=== PATIENT | female | born 1950 | race African-American/Black ===

== ENCOUNTER 2019-04-17 10:39 | Emergency (ER) | payer OTHER ==
[2019-04-17 12:20] LABS: Absolute Lymphocytes (CBC) 1.9 K/uL (0.7-4.9); Basophils % 1.1 % (0-1.3); Hematocrit 39.2 % (36.0-45.0); Lymphocytes % 27.6 % (15.3-44.8); MPV 10.1 fL (7.6-11.3); RBC Red Blood Cell Count 4.65 M/uL (3.86-4.86)
[2019-04-17 12:31] LABS: Albumin 3.6 g/dL (3.4-5.0); Bilirubin Direct 0.1 mg/dL (0-0.2); Bilirubin Total 0.3 mg/dL (0.2-1.0); Potassium 3.6 mmol/L (3.5-5.1); Protein, Total 7.1 g/dL (6.4-8.2)
--- NOTE | 2019-04-17 13:33 | RAD REPORT ---
EXAM DESCRIPTION: CT - Head Brain Wo Cont - 04/17/2019 1:24 pm CLINICAL HISTORY: Headache COMPARISON: None. TECHNIQUE: Axial 5 mm thick images of the head were obtained without IV contrast. All CT scans are performed using dose optimization technique as appropriate and may include automated exposure control or mA/KV adjustment according to patient size. FINDINGS: No intracranial hemorrhage, mass, edema or shift of mid-line structures. No acute infarcti on changes seen. Mild to moderate atrophy changes are present. Chronic ischemic changes are seen in t he cerebral white matter the and basal ganglia. Ventricles are borderline to slightly out of proporti on for the amount of volume loss. No transependymal migration of CSF. Correlation is needed with any findings of normal pressure hydrocephalus. Mastoid air cells are clear. No acute paranasal sinus finding. No acute bony findings. IMPRESSION: No hemorrhage, edema, acute infarction or other acute intracranial process. Atrophy and chronic ischemic changes present. Ventricles are borderline to slightly out of proportion for the amount of volume loss. Correlation is needed with any normal pressure hydrocephalus exam findings or history.
--- NOTE | 2019-04-17 13:38 | RAD REPORT ---
EXAM DESCRIPTION: CT - Abdomen Pelvis W Contrast - 04/17/2019 1:24 pm CLINICAL HISTORY: ABD PAIN, left lower quadrant pain, left flank pain COMPARISON: None. TECHNIQUE: Biphasic, helical CT imaging of the abdomen and pelvis was performed following 100 ml non -ionic IV contrast. No oral contrast given. All CT scans are performed using dose optimization technique as appropriate and may include automated exposure control or mA/KV adjustment according to patient size. FINDINGS: No suspicious findings in the lung bases. The liver, spleen, and pancreas show no suspicious findings. Gallbladder and biliary tree are also wi thout suspicious finding. Gallstones can be occult on CT imaging. Symmetric renal function is seen with no hydronephrosis or suspicious renal mass. No pyelonephritis o r acute parenchymal process. Urinary bladder is contracted. Normal sized uterus for age. Ovaries are not well defined. No suspicion for an adnexal process. Patient has pelvic floor laxity. Pelvic floor detail and specific organ prolapse assessment limited due to the spray artifact from the right hip pr osthesis. Bilateral adrenal gland nodularity. Primary renal mass is unlikely. No dilated bowel loops or bowel wall thickening. Left-sided diverticulosis is present without diverti culitis. Trace amount of stranding is present adjacent to a few diverticula. This is not sufficient f or a diverticulitis diagnosis. Re- imaging can be performed if the patient's symptoms are progressive . No free air, free fluid or inflammatory stranding. No mass or bulky lymphadenopathy. Patient has a very small fat only umbilical hernia. No suspicious bony findings. IMPRESSION: Diverticulosis without mass or diverticulitis. Trace amount of stranding is present carlos cent to a few diverticula. This is not sufficient for a diverticulitis diagnosis. Re- imaging can be performed if the patient's symptoms are progressive. No acute finding. Pelvic floor laxity is present. Specific organ prolapse assessment cannot be made due to the substant ial spray artifact from right hip prosthesis.
[2019-04-17 14:12] LABS: Urine Blood NEGATIVE (NEG); Urine Glucose NEGATIVE (NEG); Urine Protein NEGATIVE (NEG)
--- NOTE | 2019-04-17 14:22 | ER ---
Nurse's Notes [facility] Name: Amarilys Roberto Age: 68 yrs Sex: Female : 1950 Arrival Date: 04/17/2019 Time: 10:40 Bed 13 Private MD: Diagnosis: Abdominal and pelvic pain;Low back pain Presentation: 04/17 10:54 Presenting complaint: Patient states: LEFT lower abd pain radiates to flank x 2 days. sr5 Denies urinary/bowel symptoms. Also reports headache. PMH=DM. Transition of care: patient was not received from another setting of care. 10:54 Method Of Arrival: Ambulatory sr5 10:54 Acuity: DUNCAN 3 sr5 11:33 Onset of symptoms was April 16, 2019. Risk Assessment: Do you want to hurt yourself rb1 or someone else? Patient reports no desire to harm self or others. Initial Sepsis Screen: Does the patient meet any 2 criteria? No. Patient's initial sepsis screen is negative. Does the patient have a suspected source of infection? No. Patient's initial sepsis screen is negative. Care prior to arrival: None. Triage Assessment: 10:55 General: Appears in no apparent distress. Behavior is calm, cooperative. Pain: sr5 Complains of pain in left lower quadrant Pain currently is 4 out of 10 on a pain scale. Quality of pain is described as sharp. Neuro: No deficits noted. Cardiovascular: No deficits noted. Respiratory: No deficits noted. GI: Reports lower abdominal pain, pain worse when bending over. 11:33 Musculoskeletal: Range of motion: intact in all extremities. rb1 Historical: - Allergies: 10:55 ACETAMINOPHEN; sr5 10:55 PROPOXYPHENE; sr5 11:33 Percodan; rb1 11:33 tramadol; rb1 - Home Meds: 11:33 atropine 1 % Opht drop 1 drop once daily [Active]; Bepreve 1.5 % ophthalmic drop 1 drop rb1 2 times per day [Active]; fluticasone 50 mcg/actuation nasal spsn 1 spray 2 times per day [Active]; levothyroxine 100 mcg tab 1 tab once daily [Active]; lisinopril 20 mg Oral tab 1 tab once daily [Active]; Lotemax 0.5 % ophthalmic drpg 1 drop 4 times per day [Active]; metformin 1,000 mg Oral tr24 1 tab twice a day [Active]; montelukast 10 mg Oral tab 1 tab once daily [Active]; Symbicort 80-4.5 mcg/actuation inhalation HFAA 2 puffs 2 times per day [Active]; - PMHx: 10:55 Diabetes - NIDDM; Hypertension; Hypothyroidism; sr5 - PSHx: 11:33 eye surgery; hip surgery; corneal tranplant R eye; left eye enucleation; rb1 - Immunization history:: Flu vaccine is up to date. - Social history:: Smoking status: Patient/guardian denies using tobacco, never smoked. - Ebola Screening: : Patient negative for fever greater than or equal to 101.5 degrees Fahrenheit, and additional compatible Ebola Virus Disease symptoms. Screenin:33 Abuse screen: Denies threats or abuse. Nutritional screening: No deficits noted. rb1 Tuberculosis screening: No symptoms or risk factors identified. 12:05 Fall Risk No fall in past 12 months (0 pts). Secondary diagnosis (15 points) legally rb1 blind. IV access (20 points). Ambulatory Aid- None/Bed Rest/Nurse Assist (0 pts). Gait- Normal/Bed Rest/Wheelchair (0 pts) Mental Status- Oriented to own ability (0 pts). Total Abdullahi Fall Scale indicates Low Risk Score (25-44 pts). Fall prevention measures have been instituted. Side Rails Up X 2 Placed close to Nursing Station 1:1 attendant Assigned to Pt. Frequent Obs/Assesments occuring As available Patient and Family Educated on Fall Prevention Program and strategies. Assessment: 11:33 General: Appears in no apparent distress. comfortable, Behavior is calm, cooperative, rb1 Denies fever. Pain: Complains of pain in left lower quadrant Pain radiates to left low back Pain currently is 0 out of 10 on a pain scale. at worst was 6 out of 10 on a pain scale. Pain began 1 day ago. Neuro: Level of Consciousness is awake, alert, obeys commands, Oriented to person, place, time, situation. Cardiovascular: Capillary refill < 3 seconds is brisk in bilateral fingers. Respiratory: Airway is patent Respiratory effort is even, unlabored, Respiratory pattern is regular, symmetrical. GI: No signs and/or symptoms were reported involving the gastrointestinal system. : No signs and/or symptoms were reported regarding the genitourinary system. EENT: Reports legally blind. Derm: Skin is pink, warm \T\ dry. 12:33 Reassessment: Patient appears in no apparent distress at this time. No changes from rb1 previously documented assessment. 13:33 Reassessment: Patient appears in no apparent distress at this time. Patient and/or rb1 family updated on plan of care and expected duration. Pain level reassessed. Patient is alert, oriented x 3, equal unlabored respirations, skin warm/dry/pink. Pt. is sitting on the side of the bed watching TV. 14:30 Reassessment: Patient appears in no apparent distress at this time. Patient and/or rb1 family updated on plan of care and expected duration. Pain level reassessed. Patient is alert, oriented x 3, equal unlabored respirations, skin warm/dry/pink. Vital Signs: 10:55 BP 125 / 85; Pulse 84; Resp 18; Temp 98.2; Pulse Ox 97% on R/A; Weight 77.11 kg (R); sr5 Height 4 ft. 9 in. (144.78 cm); Pain 4/10; 12:38 BP 141 / 79; Pulse 79; Resp 19; Pulse Ox 99% on R/A; rb1 13:38 BP 151 / 77; Pulse 77; Resp 17; Pulse Ox 96% on R/A; rb1 14:35 BP 127 / 83; Pulse 66; Resp 18; Pulse Ox 99% ; Pain 2/10; rb1 10:55 Body Mass Index 36.79 (77.11 kg, 144.78 cm) sr5 [place] Coma Score: 11:44 Eye Response: spontaneous(4). Verbal Response: oriented(5). Motor Response: obeys la1 commands(6). Total: 15. ED Course: 10:40 Patient arrived in ED. as 10:55 Triage completed. sr5 10:55 Arm band placed on. sr5 11:25 Sergio Whitehead FNP-C [facility]. la1 11:25 Иван Chapman MD is Attending Physician. la1 11:33 Patient has correct armband on for positive identification. Bed in low position. Call rb1 light in reach. Side rails up X 1. Pulse ox on. NIBP on. Warm blanket given. 11:34 Trudy Sol, SCARLET is Primary Nurse. rb1 12:04 Inserted saline lock: 22 gauge in right antecubital area, using aseptic technique. rb1 Blood collected. 12:31 Radiology exam delayed due to lab results not completed at this time. bq 13:01 intact, bleeding controlled, No redness/swelling at site. Pressure dressing applied, 22 ss gauge in R AC dc'd per patient request due to discomfort. 13:01 Inserted saline lock: 22 gauge in left antecubital area, using aseptic technique. ss 13:23 CT Abd/Pelvis - IV Contrast Only In Process Unspecified. EDMS 13:24 CT Head Brain wo Cont In Process Unspecified. EDMS 15:09 No provider procedures requiring assistance completed. IV discontinued, intact, rb1 bleeding controlled, No redness/swelling at site. Pressure dressing applied. Administered Medications: No medications were administered Outcome: 14:20 Discharge ordered by . la1 15:00 Discharged to home ambulatory. rb1 15:00 Condition: stable 15:00 Discharge instructions given to patient, Instructed on discharge instructions, follow up and referral plans. medication usage, Demonstrated understanding of instructions, follow-up care, medications, Prescriptions given X 1. 15:10 Patient left the ED. rb1 Signatures: Dispatcher [employer] EDPA Michelle Aranda Amelia as Smirch, Shelby, SCARLET NOVAK ss Sergio Whitehead, DO ALL OPERATOR-C DO ALL OPERATOR-Cla1 Trudy Sol, RN RN rb1 Neo Hunt RN RN sr5 Corrections: (The following items were deleted from the chart) 12:19 11:33 Fall Risk None identified. rb1 rb1
--- NOTE | 2019-04-17 14:22 | EDPHYS ---
Physician Documentation [facility] Name: Amarilys Roberto Age: 68 yrs Sex: Female : 1950 Arrival Date: 04/17/2019 Time: 10:40 Bed 13 Private MD: ROGER Physician Иван Chapman HPI: 04/17 11:40 The patient presents with pain that is acute, with no known mechanism of injury. The la1 symptoms are located in the LLQ, left flank, left SI area. Onset: The symptoms/episode began/occurred acutely, 2 day(s) ago. Associated signs and symptoms: Pertinent negatives: fever, hematuria, incontinence, nausea, numbness, tingling, urinary retention, vomiting, weakness. The problem was sustained without known cause. Modifying factors: The patient symptoms are alleviated by nothing, the patient symptoms are aggravated by bending. Severity of symptoms: At their worst the symptoms were mild. The patient has not experienced similar symptoms in the past. 11:41 pt has history of back issues, has had multiple epidural injection in the last year. . la1 Historical: - Allergies: 10:55 ACETAMINOPHEN; sr5 10:55 PROPOXYPHENE; sr5 11:33 Percodan; rb1 11:33 tramadol; rb1 - Home Meds: 11:33 atropine 1 % Opht drop 1 drop once daily [Active]; Bepreve 1.5 % ophthalmic drop 1 drop rb1 2 times per day [Active]; fluticasone 50 mcg/actuation nasal spsn 1 spray 2 times per day [Active]; levothyroxine 100 mcg tab 1 tab once daily [Active]; lisinopril 20 mg Oral tab 1 tab once daily [Active]; Lotemax 0.5 % ophthalmic drpg 1 drop 4 times per day [Active]; metformin 1,000 mg Oral tr24 1 tab twice a day [Active]; montelukast 10 mg Oral tab 1 tab once daily [Active]; Symbicort 80-4.5 mcg/actuation inhalation HFAA 2 puffs 2 times per day [Active]; - PMHx: 10:55 Diabetes - NIDDM; Hypertension; Hypothyroidism; sr5 - PSHx: 11:33 eye surgery; hip surgery; corneal tranplant R eye; left eye enucleation; rb1 - Immunization history:: Flu vaccine is up to date. - Social history:: Smoking status: Patient/guardian denies using tobacco, never smoked. - Ebola Screening: : Patient negative for fever greater than or equal to 101.5 degrees Fahrenheit, and additional compatible Ebola Virus Disease symptoms. ROS: 11:42 Constitutional: Negative for fever, chills, and weight loss. la1 11:42 ENT: Negative for injury, pain, and discharge, Neck: Negative for injury, pain, and swelling, Cardiovascular: Negative for chest pain, palpitations, and edema, Respiratory: Negative for shortness of breath, cough, wheezing, and pleuritic chest pain. 11:42 Back: Negative for injury and pain, : Negative for injury, bleeding, discharge, and swelling, MS/Extremity: Negative for injury and deformity, Neuro: Negative for headache, weakness, numbness, tingling, and seizure. 11:42 Eyes: Positive for redness to right eye which is chronic, seeing ophthalmology and greenhouse specialist. Denies acute visual changes. 11:42 Abdomen/GI: Positive for abdominal pain, Negative for vomiting, diarrhea, constipation, dysphagia, hematemesis, black/tarry stool, rectal pain, rectal bleeding, bowel incontinence. Exam: 11:44 Constitutional: This is a well developed, well nourished patient who is awake, alert, la1 and in no acute distress. Head/Face: Normocephalic, atraumatic. ENT: Mucous membranes moist. 11:44 Neck: No Meningismus. Chest/axilla: Normal chest wall appearance and motion. Nontender with no deformity. No lesions are appreciated. Cardiovascular: Regular rate and rhythm with a normal S1 and S2. No gallops, murmurs, or rubs. Normal PMI, no JVD. No pulse deficits. Respiratory: Lungs have equal breath sounds bilaterally, clear to auscultation No rales, rhonchi or wheezes noted. No increased work of breathing, no retractions or nasal flaring. 11:44 Eyes: Periorbital structures: appear normal, no cellulitis, no contusion, no ecchymosis, no erythema, no laceration. 11:44 Abdomen/GI: Inspection: abdomen appears normal, Bowel sounds: normal, in all quadrants, Palpation: soft, in all quadrants, nontender, in all quadrants, Indicators: McBurney's point is not tender, Harris's sign is negative, Rovsing's sign is negative, Obturator sign is negative, Psoas sign is negative. 11:44 Back: pain, that is moderate, of the left low back, ROM is normal, CVA tenderness, is absent, muscle spasm, is not present. 11:44 Neuro: Orientation: is normal, Motor: is normal, moves all fours, Sensation: is normal. 11:44 Special observations: no evidence of discomfort, the patient smiles. Vital Signs: 10:55 BP 125 / 85; Pulse 84; Resp 18; Temp 98.2; Pulse Ox 97% on R/A; Weight 77.11 kg (R); sr5 Height 4 ft. 9 in. (144.78 cm); Pain 4/10; 12:38 BP 141 / 79; Pulse 79; Resp 19; Pulse Ox 99% on R/A; rb1 13:38 BP 151 / 77; Pulse 77; Resp 17; Pulse Ox 96% on R/A; rb1 14:35 BP 127 / 83; Pulse 66; Resp 18; Pulse Ox 99% ; Pain 2/10; rb1 10:55 Body Mass Index 36.79 (77.11 kg, 144.78 cm) sr5 [place] Coma Score: 11:44 Eye Response: spontaneous(4). Verbal Response: oriented(5). Motor Response: obeys la1 commands(6). Total: 15. MDM: 11:30 Patient medically screened. la1 14:18 Data reviewed: vital signs, nurses notes, lab test result(s), radiologic studies, I la1 have discussed the patient's presentation/case with the attending Emergency Department Physician; and as a result, I will discharge patient. Data interpreted: Pulse oximetry: on room air is 96 %. Interpretation: normal. Counseling: I had a detailed discussion with the patient and/or guardian regarding: the historical points, exam findings, and any diagnostic results supporting the discharge/admit diagnosis, the presence of at least one elevated blood pressure reading (>120/80) during this emergency department visit, radiology results, the need for outpatient follow up, an opthalmologist, a family practitioner, a fleecer, to return to the emergency department if symptoms worsen or persist or if there are any questions or concerns that arise at home. Special discussion: Based on the patient's Hx, exam, and Dx evaluation, there is no indication for emergent surgery or inpatient Tx. It is understood by the patient/guardian that if the Sx's persist or worsen they need to return immediately for re-evaluation. ED course: pt pain is mild, reproducible with palpation over left SI joint, CT shows diverticulosis without diverticulitis, CT head is non-specific and pt is not exhibiting signs of NPH. Will have pt FU with PCP and her eye doctor, pt states no acute changes to right eye.. 04/17 11:31 Order name: Urine Dipstick--Ancillary (enter results) ss 04/17 11:37 Order name: Basic Metabolic Panel; Complete Time: 12:35 la1 04/17 11:37 Order name: CBC with Diff; Complete Time: 12:35 la1 04/17 11:37 Order name: Creatinine for Radiology; Complete Time: 12:35 la1 04/17 11:37 Order name: Hepatic Function; Complete Time: 12:35 la1 04/17 11:37 Order name: Lipase; Complete Time: 12:35 la1 04/17 11:37 Order name: IV Saline Lock; Complete Time: 12:36 la1 04/17 11:37 Order name: Labs collected and sent; Complete Time: 12:36 la1 04/17 11:53 Order name: CT Abd/Pelvis - IV Contrast Only; Complete Time: 13:42 la1 04/17 12:19 Order name: Glucose, Ancillary Testing; Complete Time: 12:35 EDMS 04/17 12:51 Order name: CT Head Brain wo Cont; Complete Time: 13:42 la1 Administered Medications: No medications were administered Disposition: 19:56 Co-signature as Attending Physician, Иван Chapman MD I agree with the assessment and freda plan of care. Disposition: 04/17/19 14:20 Discharged to Home. Impression: Abdominal and pelvic pain, Low back pain. - Condition is Stable. - Discharge Instructions: Abdominal Pain, Adult, Back Pain, Adult, Musculoskeletal Pain, Abdominal Pain, Adult, [id number]. - Prescriptions for Robaxin 500 mg Oral Tablet - take 2 tablets by ORAL route every 6 hours As needed; 20 tablet. - Medication Reconciliation Form, Thank You Letter form. - Follow up: Emergency Department; When: As needed; Reason: Fever > 102 F, Worsening of condition. Follow up: Private Physician; When: 2 - 3 days; Reason: Recheck today's complaints, Re-evaluation by your physician. - Problem is new. - Symptoms have improved. Signatures: Dispatcher [employer] EDИван Gavin MD MD cha Attema, Lee, RETREADER-C RETREADER-Cla1 Trudy Sol, RN RN rb1 Resecker, Neo RN RN sr5 Corrections: (The following items were deleted from the chart) 15:10 14:20 04/17/2019 14:20 Discharged to Home. Impression: Abdominal and pelvic pain; Low rb1 back pain. Condition is Stable. Forms are Medication Reconciliation Form, Thank You Letter, Antibiotic Education, Prescription Opioid Use. Follow up: Emergency Department; When: As needed; Reason: Fever > 102 F, Worsening of condition. Follow up: Private Physician; When: 2 - 3 days; Reason: Recheck today's complaints, Re-evaluation by your physician. Problem is new. Symptoms have improved. la1
[2019-04-17 15:20] VITALS: TEMP 98.2
[2019-04-17 15:25] VITALS: BP 127/83; O2SAT 99
== END 2019-04-17 15:10 | disposition home or self-care (01) ==
LOC: ER 10:39
DX: M54.5 Low back pain (principal); I10 Essential (primary) hypertension; E11.9 Type 2 diabetes mellitus without complications; E03.9 Hypothyroidism, unspecified; Z88.5 Allergy status to narcotic agent; Z88.6 Allergy status to analgesic agent; Z88.8 Allergy status to other drugs, medicaments and biological substances
CPT/HCPCS: 85025; 80048; 36415; 82947; 80076; 81003; 83690; 70450; 74177; 99284; Q9967

== ENCOUNTER 2019-05-30 10:34 | Emergency (ER) | payer OTHER ==
[2019-05-30] MEDS ORDERED: METHYLPREDNISOLONE 125 MG INJ ONE (11:01)
--- NOTE | 2019-05-30 11:16 | RAD REPORT ---
EXAM DESCRIPTION: RAD - Chest Pa And Lat (2 Views) - 05/30/2019 11:09 am CLINICAL HISTORY: COUGH Chest pain. COMPARISON: No comparisons FINDINGS: Interstitial lung markings are mildly prominent. The heart is normal in size. No displaced fractures. IMPRESSION: Mild interstitial prominence. This may indicate interstitial pneumonitis or mild bronchi tis.
--- NOTE | 2019-05-30 12:04 | EDPHYS ---
Physician Documentation [facility] Name: Amarilys Roberto Age: 69 yrs Sex: Female : 1950 Arrival Date: 05/30/2019 Time: 10:37 Bed 19 Private MD: Luis Alfredo Allen E ED Physician Blaise Smith HPI: 05/30 10:58 This 69 yrs old Black Female presents to ER via Ambulatory with complaints of Cough, pm1 Headache, Allergy Symptoms. 10:58 The patient or guardian reports cough, with productive sputum, clear, sinus congestion. pm1 Onset: The symptoms/episode began/occurred 3 day(s) ago. 10:58 Severity of symptoms: in the emergency department the symptoms are actually worse. pm1 Modifying factors: The symptoms are alleviated by nothing, has been trying multiple OTC cough and congestion medications without improvement the symptoms are aggravated by pollen, spring season around this time of year. Associated signs and symptoms: Pertinent positives: rhinorrhea, Pertinent negatives: chest pain, ear ache, fever, sore throat. The patient has experienced similar episodes in the past, multiple times. The patient has not recently seen a physician, the patient's primary care provider is Dr. Allen. Historical: - Allergies: 10:53 ACETAMINOPHEN; ss 10:53 Percodan; ss 10:53 PROPOXYPHENE; ss 10:53 tramadol; ss - PMHx: 10:53 Diabetes - NIDDM; Hypertension; Hypothyroidism; ss - PSHx: 10:53 eye surgery; hip surgery; corneal tranplant R eye; left eye enucleation; ss - Immunization history:: Adult Immunizations up to date. - Coronavirus screen:: The patient has NOT traveled to [place], [place], or [place] in the past 14 days. - Social history:: Smoking status: Patient denies any tobacco usage or history of. - Ebola Screening: : Patient denies exposure to infectious person Patient denies travel to an Ebola-affected area in the 21 days before illness onset. ROS: 10:58 Constitutional: Negative for fever, chills, and weight loss. pm1 10:58 ENT: Negative for injury, pain, and discharge, Neck: Negative for injury, pain, and swelling, Cardiovascular: Negative for chest pain, palpitations, and edema. 10:58 Abdomen/GI: Negative for abdominal pain, nausea, vomiting, diarrhea, and constipation, Back: Negative for injury and pain, MS/Extremity: Negative for injury and deformity, Skin: Negative for injury, rash, and discoloration, Neuro: Negative for headache, weakness, numbness, tingling, and seizure. 10:58 Eyes: Positive for itching, redness, of the right eye and left eye. 10:58 Respiratory: Positive for cough, Negative for shortness of breath, wheezing. Exam: 10:58 Constitutional: This is a well developed, well nourished patient who is awake, alert, pm1 and in no acute distress. 10:58 Neck: Trachea midline, no thyromegaly or masses palpated, and no cervical lymphadenopathy. Supple, full range of motion without nuchal rigidity, or vertebral point tenderness. No Meningismus. Chest/axilla: Normal chest wall appearance and motion. Nontender with no deformity. No lesions are appreciated. Cardiovascular: Regular rate and rhythm with a normal S1 and S2. No gallops, murmurs, or rubs. No pulse deficits. Respiratory: Lungs have equal breath sounds bilaterally, clear to auscultation and percussion. No rales, rhonchi or wheezes noted. No increased work of breathing, no retractions or nasal flaring. Abdomen/GI: Soft, non-tender, with normal bowel sounds. No distension or tympany. No guarding or rebound. No evidence of tenderness throughout. Back: No spinal tenderness. No costovertebral tenderness. Full range of motion. Skin: Warm, dry with normal turgor. Normal color with no rashes, no lesions, and no evidence of cellulitis. MS/ Extremity: Pulses equal, no cyanosis. Neurovascular intact. Full, normal range of motion. 10:58 ENT: Nares patent. No nasal discharge, no septal abnormalities noted. Tympanic membranes are normal and external auditory canals are clear. Oropharynx with no redness, swelling, or masses, exudates, or evidence of obstruction, uvula midline. Mucous membranes moist. 10:58 Head/face: Sinus tenderness, that is mild, is located over the right ethmoid sinus and left ethmoid sinus. 10:58 Eyes: Conjunctiva: injected, bilaterally, tearing noted, bilaterally. Vital Signs: 10:53 BP 182 / 56; Pulse 73; Resp 17; Temp 97.5(TE); Pulse Ox 98% on R/A; Weight 73.48 kg; ss Height 4 ft. 9 in. (144.78 cm); Pain 9/10; 11:47 BP 143 / 79; Pulse 64; Resp 16; Pulse Ox 97% ; bp 12:54 BP 135 / 76; Pulse 62; Resp 17; Temp 97.5; Pulse Ox 99% ; bp 10:53 Body Mass Index 35.06 (73.48 kg, 144.78 cm) ss MDM: 10:46 Patient medically screened. pm1 12:02 Data reviewed: vital signs. Data interpreted: Pulse oximetry: on room air is 97 %. pm1 Interpretation: normal. Counseling: I had a detailed discussion with the patient and/or guardian regarding: the historical points, exam findings, and any diagnostic results supporting the discharge/admit diagnosis, lab results, radiology results, the need for outpatient follow up, to return to the emergency department if symptoms worsen or persist or if there are any questions or concerns that arise at home. 12:08 ED course: Impression is bronchitis and sinusitis. No fever and duration only 3 days. pm1 No indication for antibiotic therapy. Will treat the patient with steroids, inhaler therapy PRN, and cough medication PRN. 05/30 10:55 Order name: Flu; Complete Time: 11:33 pm1 05/30 10:55 Order name: Strep; Complete Time: 11:33 pm1 05/30 10:55 Order name: Chest Pa And Lat (2 Views) XRAY; Complete Time: 11:28 pm1 05/30 11:34 Order name: Throat Culture EDMS 05/30 12:55 Order name: Glucose, Ancillary Testing; Complete Time: 12:57 EDMS Administered Medications: 11:00 Drug: SOLU-Medrol 125 mg Route: IM; Site: left deltoid; bp 11:47 Follow up: Response: No adverse reaction bp 12:13 Drug: Tussionex Pennkinetic ER 5 ml Route: PO; bp 12:57 Follow up: Response: No adverse reaction bp Disposition: 17:38 Co-signature as Attending Physician, Blaise Smith MD. rn Disposition: 05/30/19 12:03 Discharged to Home. Impression: Bronchitis, not specified as acute or chronic. - Condition is Stable. - Discharge Instructions: Acute Bronchitis, Adult, How to Use an Inhaler, Sinusitis, Adult. - Prescriptions for Prednisone 20 mg Oral Tablet - take 2 tablet by ORAL route once daily for 5 days; 10 tablet. Albuterol Sulfate 90 mcg/actuation - inhale 1-2 puff by INHALATION route every 4-6 hours; 1 Inhaler. Guaifenesin AC 10- 100 mg/5 mL Oral Liquid - take 10 milliliter by ORAL route every 4 hours As needed; 240 milliliter. - Medication Reconciliation Form, Thank You Letter, Antibiotic Education, Prescription Opioid Use form. - Follow up: Emergency Department; When: As needed; Reason: Worsening of condition. Follow up: Private Physician; When: 2 - 3 days; Reason: Recheck today's complaints, Continuance of care, Re-evaluation by your physician. - Problem is new. - Symptoms have improved. Signatures: Dispatcher [employer] EDMS Blaise Smith MD MD rn Smirch, Shelby, RN RN ss Jose Fagan, STEPHON PHLEBOTOMY TECHNICIAN pm1 Chemo James RN RN bp Corrections: (The following items were deleted from the chart) 12:59 12:03 05/30/2019 12:03 Discharged to Home. Impression: Bronchitis, not specified as bp acute or chronic. Condition is Stable. Forms are Medication Reconciliation Form, Thank You Letter, Antibiotic Education, Prescription Opioid Use. Follow up: Emergency Department; When: As needed; Reason: Worsening of condition. Follow up: Private Physician; When: 2 - 3 days; Reason: Recheck today's complaints, Continuance of care, Re-evaluation by your physician. Problem is new. Symptoms have improved. pm1
--- NOTE | 2019-05-30 12:04 | ER ---
Nurse's Notes [facility] Name: Amarilys Roberto Age: 69 yrs Sex: Female : 1950 Arrival Date: 05/30/2019 Time: 10:37 Bed 19 Private MD: Luis Alfredo Allen E Diagnosis: Bronchitis, not specified as acute or chronic Presentation: 05/30 10:47 Presenting complaint: Patient states: cough, headache and sinus pain x 3 days. ss Transition of care: patient was not received from another setting of care. Onset of symptoms was May 27, 2019. Risk Assessment: Do you want to hurt yourself or someone else? Patient reports no desire to harm self or others. Initial Sepsis Screen: Does the patient meet any 2 criteria? No. Patient's initial sepsis screen is negative. Does the patient have a suspected source of infection? No. Patient's initial sepsis screen is negative. Care prior to arrival: None. 10:47 Method Of Arrival: Ambulatory ss 10:47 Acuity: DUNCAN 4 ss Triage Assessment: 10:50 Headache History: The patient has had previous headaches and this one is similar to bp previous episodes. General: Appears in no apparent distress. comfortable, Behavior is calm, cooperative, appropriate for age. Pain: Complains of pain in head Pain currently is 8 out of 10 on a pain scale. Pain began 1 day ago. Also complains of no other associated symptoms. EENT: Reports nasal congestion. Neuro: No deficits noted. Cardiovascular: No deficits noted. Respiratory: Airway Breath sounds are clear bilaterally. GI: No signs and/or symptoms were reported involving the gastrointestinal system. : No signs and/or symptoms were reported regarding the genitourinary system. Derm: No deficits noted. Musculoskeletal: No deficits noted. Historical: - Allergies: 10:53 ACETAMINOPHEN; ss 10:53 Percodan; ss 10:53 PROPOXYPHENE; ss 10:53 tramadol; ss - PMHx: 10:53 Diabetes - NIDDM; Hypertension; Hypothyroidism; ss - PSHx: 10:53 eye surgery; hip surgery; corneal tranplant R eye; left eye enucleation; ss - Immunization history:: Adult Immunizations up to date. - Coronavirus screen:: The patient has NOT traveled to [place], [place], or [place] in the past 14 days. - Social history:: Smoking status: Patient denies any tobacco usage or history of. - Ebola Screening: : Patient denies exposure to infectious person Patient denies travel to an Ebola-affected area in the 21 days before illness onset. Screenin:50 Abuse screen: Denies threats or abuse. Denies injuries from another. Nutritional bp screening: No deficits noted. Tuberculosis screening: No symptoms or risk factors identified. Fall Risk None identified. Assessment: 10:50 General: SEE TRIAGE NOTE. Pain: Complains of pain in head. Neuro: Level of bp Consciousness is awake, alert, obeys commands, Oriented to person, place, time, situation, Appropriate for age. 11:16 Reassessment: PT RETURNED FROM XRAY. bp 11:49 Reassessment: ALL CURRENT ORDERS COMPLETED, RESULTS PENDING FOR DISPO. bp 12:55 Reassessment: PT D/C HOME AMBULATORY, DX WITH BRONCHITIS. bp Vital Signs: 10:53 BP 182 / 56; Pulse 73; Resp 17; Temp 97.5(TE); Pulse Ox 98% on R/A; Weight 73.48 kg; ss Height 4 ft. 9 in. (144.78 cm); Pain 9/10; 11:47 BP 143 / 79; Pulse 64; Resp 16; Pulse Ox 97% ; bp 12:54 BP 135 / 76; Pulse 62; Resp 17; Temp 97.5; Pulse Ox 99% ; bp 10:53 Body Mass Index 35.06 (73.48 kg, 144.78 cm) ED Course: 10:37 Patient arrived in ED. as 10:37 Luis Alfredo Allen MD is Private Physician. as 10:42 Jose Fagan NP is PHCP. pm1 10:42 Blaise Smith MD is Attending Physician. pm1 10:42 Chemo James, SCARLET is Primary Nurse. bp 10:51 Triage completed. ss 10:53 Arm band placed on right wrist. ss 11:11 Chest Pa And Lat (2 Views) XRAY In Process Unspecified. EDMS 11:50 Patient has correct armband on for positive identification. Bed in low position. Call bp light in reach. Side rails up X2. 12:55 No provider procedures requiring assistance completed. Patient did not have IV access bp during this emergency room visit. Administered Medications: 11:00 Drug: SOLU-Medrol 125 mg Route: IM; Site: left deltoid; bp 11:47 Follow up: Response: No adverse reaction bp 12:13 Drug: Tussionex Pennkinetic ER 5 ml Route: PO; bp 12:57 Follow up: Response: No adverse reaction bp Outcome: 12:03 Discharge ordered by . pm1 12:55 Discharged to home ambulatory, with family. bp 12:55 Condition: stable 12:55 Discharge instructions given to Instructed on discharge instructions, Demonstrated understanding of instructions, follow-up care, medications, Prescriptions given X 3. 12:59 Patient left the ED. bp Signatures: Dispatcher [employer] EDMS Susana Lambert Shelby, RN RN ss Jose Fagan, STEPHON MEDICAL STAFF MANAGER pm1 Chemo James RN RN bp Corrections: (The following items were deleted from the chart) 12:54 11:47 BP 182 / 56; Pulse 64bpm; Resp 16bpm; Pulse Ox 97%; bp bp
[2019-05-30] MEDS ORDERED: HYDROCODONE/CHLORPHEN 5 ML/OSYR ONE (12:18)
[2019-05-30 13:15] VITALS: TEMP 97.5
[2019-05-30 13:19] VITALS: BP 135/76; O2SAT 99
== END 2019-05-30 12:59 | disposition home or self-care (01) ==
LOC: ER 10:34
DX: J40 Bronchitis, not specified as acute or chronic (principal); Z88.6 Allergy status to analgesic agent
CPT/HCPCS: 87070; 82947; 87081; 87804 ×2; 71046; 96372; 99283; J2930

== ENCOUNTER 2020-08-22 16:54 | Emergency (ER) | payer OTHER ==
--- OUTSIDE RECORDS SUMMARY | 2020-08-22 16:56 | XMS REPORT | Continuity of Care Document ---
:1950 Author Organization [facility] t Address [address] [place] [address] Care Team Providers Name Role Phone Alejandro Esteves MD Primary Care Physician Estrella Richardson MD Attending Clinician Gilson Georges MD Attending Clinician Payers Payer Name Policy Type Policy Effective Date Expiration Date Sour ce Number UHC MEDICAREUHC [id number] 2015 [place] DUAL COMPLETE 00:00:00 [employer] [id number]/04/22 016-PresentHMO Problems Condition Condition Condition Status Onset Resolution Last Treating Co mments Source Name Details Category Date Date Treatment Clinician Date 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 Family History Family Member Diagnosis Comments Start Date Stop Date Source Natural mother COPD [place] [facility] Natural mother Heart disease [place] [facility] Natural mother Stroke [place] [facility] Natural sister Diabetes [place] [facility] Natural son Diabetes [place] [facility] dist Natural son Heart disease [place] [facility] Social History Social Habit Start Date Stop Date Quantity Comments Source Alcohol intake 2016-05-31 2016-05-31 Current drinker of [place] [facility] [facility] 00:00:00 00:00:00 alcohol (finding) Alcohol Comment 2016-02-21 2016-02-21 occasional [place] [facility] 00:00:00 00:00:00 Sex [birth year] Federico gilliam 00:00:00 00:00:00 Smoking Status Start Date Stop Date Source Never smoker Federico Mcgrath t Medications Ordered Filled Start Stop Current Ordering Indication Dosage Frequency Signature Comments Components Source Medication Medication Date Date Medication? Clinician (SIG) Name Name lisinopril 2017-0 Yes 20mg QD Take 20 mg [place] (PRINIVIL,Z 2-08 by mouth Meth shaan ESTRIL) 20 14:43: every st MG tablet 40 morning. levothyroxi 2017-0 Yes 100ug QD Take 100 [place] ne 2-08 mcg by [facility] (SYNTHROID, 14:43: mouth st LEVOTHROID) 40 every 100 MCG morning. tablet metFORMIN 2017-0 Yes 1000mg Q.5D Take 1,000 [place] (GLUCOPHAGE 2-08 mg by [facility] ) 1000 MG 14:43: mouth 2 st tablet 40 (two) times a day. cyanocobala 2017-[address] [place] on , 2 under the [facility] vitamin 14:43: tongue st B-12, 40 daily. (VITAMIN B-12) 1,000 mcg tablet, sublingual CALCIUM 2017-0 Yes Q.5D Take by Federico CARBONATE/V 2-08 mouth 2 [facility] di ITAMIN D3 14:43: (two) st (CALCIUM 40 times a 600 + D,3, day. ORAL) MONTELUKAST 2017-0 Yes QD Take by Gurwinder ston SODIUM 2-08 mouth [facility] (SINGULAIR 14:43: every st ORAL) 40 morning. loteprednol 2017-0 Yes 1[drp] Q.5D Administer [place] (LOTEMAX) 2-08 1 drop to Metho di 0.5 % 14:43: the right st ophthalmic 40 eye 2 suspension (two) times a day. latanoprost 2017-0 Yes 1[drp] QD Administer [place] (XALATAN) 2-08 1 drop [facility] 0.005 % 14:43: into the st ophthalmic 40 left eye solution nightly. brimonidine 2017-0 Yes 1[drp] Q12H Administer [place] -timolol 2-08 1 drop [facility] (COMBIGAN) 14:43: into the st 0.2-0.5 % 40 left eye ophthalmic every 12 solution (twelve) hours. LIFITEGRAST 2017-0 Yes Q.5D Apply to [place] (XIIDRA 2-08 eye 2 [facility] OPHT) 14:43: (two) st 40 times a day. Procedures Procedure Date / Time Performed Performing Clinician [facility] e SURGICAL PATHOLOGY 2019-09-21 10:57:00 Elizabeth Georges Gilson Basilio cornejo [facility] REQUEST Plan of Care Planned Activity Planned Date Details Comments Source Future Scheduled 2020-11-19 INFLUENZA VACCINE [place] [facility] Test 00:00:00 [code = INFLUENZA VACCINE] Future Scheduled 2015 65+ PNEUMOCOCCAL [place] [facility] Test 00:00:00 VACCINE (1 of 1 - PPSV23) [code = 65+ PNEUMOCOCCAL VACCINE (1 of 1 - PPSV23)] Future Scheduled 2000 BREAST CANCER [facility] thodist Test 00:00:00 SCREENING [code = BREAST CANCER SCREENING] Future Scheduled 2000 COLONOSCOPY SCREENING [place] [facility] [facility] Test 00:00:00 [code = COLONOSCOPY SCREENING] Future Scheduled 2000 SHINGLES VACCINES (#1) Basilio [place] [facility] Test 00:00:00 [code = SHINGLES VACCINES (#1)] Future Scheduled 1966 COVID-19 VACCINE (1) Gurwinder nuñez [facility] Test 00:00:00 [code = COVID-19 VACCINE (1)] Encounters Start End Encounter Admission Attending Care Care Encounter Source Date/Time Date/Time Type Type Clinicians Facility Department ID 2020-06-28 2020-06-28 Office AILEEN Richardson [id number] 12:54:41 14:39:32 Visit [facility] [id number] Surgical [id number] Special [id number] [place] 2019-09-21 2019-09-21 Outpatient ELIZABETH GEORGES [facility] [id number] [place] 00:00:00 00:00:[address] Results Test Description Test Time Test Comments Results Result Comments Source Surgical pathology request 2019-10-04 12:56:24 Test Item Value Reference Range Interpretation Comme nts Case number (test code = [id number]) [id number] Surgical pathology report (test code = See link below for PDF Lab R eport 4916) Result status (test code = [id number]) This is Final Report for [id number] [facility]
[2020-08-22] MEDS ORDERED: TETRACAINE HCL 0.5% 4ML OPTH ONE (21:08)
--- NOTE | 2020-08-22 21:38 | ER ---
Nurse's Notes [facility] Name: Amarilys Roberto Age: 70 yrs Sex: Female : 1950 Arrival Date: 08/22/2020 Time: 16:56 Bed 12 Private MD: Diagnosis: Person with feared health complaint in whom no diagnosis is made Presentation: 08/22 17:05 Chief complaint: Patient states: i cant get this contact lens out of my eye. its called tw2 a sclera lens. my son called the nurse at the place [place] and they said come to the ER and to bring all my equipment to get it out because they dont want me to sleep in the lens tonight. I started wearing it Friday and started with 4 hours and work my way up to wearing it to 12 hours. Coronavirus screen: At this time, the client does not indicate any symptoms associated with coronavirus-19. Ebola Screen: Patient denies travel to an Ebola-affected area in the 21 days before illness onset. Initial Sepsis Screen: Does the patient meet any 2 criteria? No. Patient's initial sepsis screen is negative. Does the patient have a suspected source of infection? No. Patient's initial sepsis screen is negative. Risk Assessment: Do you want to hurt yourself or someone else? Patient reports no desire to harm self or others. Onset of symptoms was August 22, 2020. 17:05 Method Of Arrival: Ambulatory tw2 17:05 Acuity: DUNCAN 3 tw2 Triage Assessment: 17:08 General: Appears in no apparent distress. uncomfortable, obese, well groomed, Behavior tw2 is calm, cooperative, appropriate for age. Pain: Complains of pain in right eye. EENT: Reports increased redness in RIGHT eye. Historical: - Allergies: 17:13 ACETAMINOPHEN; tw2 17:13 Percodan; tw2 17:13 PROPOXYPHENE; tw2 17:13 tramadol; tw2 - PMHx: 17:13 Diabetes - NIDDM; Hypertension; Hypothyroidism; tw2 - PSHx: 17:13 eye surgery; hip surgery; corneal tranplant R eye; left eye enucleation; tw2 - Immunization history:: Adult Immunizations. - Social history:: Smoking status: . Screenin:35 Abuse screen: Denies threats or abuse. Denies injuries from another. Nutritional ca1 screening: No deficits noted. Tuberculosis screening: No symptoms or risk factors identified. Fall Risk None identified. Assessment: 20:35 General: Appears in no apparent distress. comfortable, Behavior is calm, cooperative, ca1 appropriate for age. Pain: Complains of pain in right eye Pain currently is 7 out of 10 on a pain scale. Pain began been attempting to remove sclera lens since 1400 today. Neuro: Level of Consciousness is awake, alert, obeys commands, Oriented to person, place, time, situation. EENT: Eyes are tearing on outer aspect of conjuctiva of right eye and inner aspect of conjuctiva of right eye Sclera/Cornea are reddened in outer aspect of conjuctiva of right eye and inner aspect of conjuctiva of right eye. Derm: Skin is intact, is healthy with good turgor, Skin is pink, warm \\T\\ dry. Musculoskeletal: Circulation, motion, and sensation intact. Capillary refill < 3 seconds. 22:11 Reassessment: Patient appears in no apparent distress at this time. Patient is alert, ca1 oriented x 3, equal unlabored respirations, skin warm/dry/pink. Vital Signs: 17:05 BP 149 / 87; Pulse 86; Resp 17; Temp 97.9(TE); Pulse Ox 98% on R/A; Weight 74.39 kg (R);tw2 17:57 Pulse 68; Resp 17; Pulse Ox 98% on R/A; tw2 20:57 BP 154 / 104; Pulse 57; Resp 18 S; Pulse Ox 100% on R/A; ca1 22:15 BP 141 / 78; Pulse 61; Resp 18 S; Pulse Ox 100% on R/A; ca1 17:57 nad, pt states "my eye still hurts", pt talking and laughing with other ER pts in tw2 waiting area at this time. ED Course: 16:56 Patient arrived in ED. as 17:08 Triage completed. tw2 17:08 Arm band placed on. tw2 20:23 Chan Manning PA is PHCP. [facility] 20:23 Иван Chapman MD is Attending Physician. [facility] 20:35 Patient has correct armband on for positive identification. Bed in low position. Call ca1 light in reach. Side rails up X2. Pulse ox on. NIBP on. Warm blanket given. 20:49 Ruchi Dong, RN is Primary Nurse. ca1 21:30 Assist provider with eye exam of right eye. using slit lamp, Performed by Chan ALFORD Patient tolerated well. Patient did not have IV access during this emergency room visit. Administered Medications: 22:10 Drug: Gentamicin Drops 0.3 % 2 drops Route: Ophthalmic; Site: right eye; ca1 Outcome: 21:38 Discharge ordered by MD. keith 22:16 Discharged to home ambulatory. ca1 22:16 Condition: stable 22:16 Discharge instructions given to patient, Instructed on discharge instructions, follow up and referral plans. Demonstrated understanding of instructions, follow-up care. 22:16 Patient left the ED. ca1 Signatures: Chan Manning PA PA jmm Martinez, Amelia as Wise, Tara, RN RN tw2 Ruchi Dong, RN RN ca1
--- NOTE | 2020-08-22 21:38 | EDPHYS ---
Physician Documentation [facility] Name: Amarilys Roberto Age: 70 yrs Sex: Female : 1950 Arrival Date: 08/22/2020 Time: 16:56 Bed 12 Private MD: ROGER Physician Иван Chapman HPI: 08/22 20:30 This 70 yrs old Black Female presents to ER via Ambulatory with complaints of Redness jmm of Eye - lens stuck. 20:30 The patient is experiencing stuck contact lens. Onset: The symptoms/episode jmm began/occurred today. Aggravated by nothing. Alleviated by nothing. Associated signs and symptoms: Pertinent negatives: fever. Patient states she got a contact lens stuck in her right eye. Historical: - Allergies: 17:13 ACETAMINOPHEN; tw2 17:13 Percodan; tw2 17:13 PROPOXYPHENE; tw2 17:13 tramadol; tw2 - PMHx: 17:13 Diabetes - NIDDM; Hypertension; Hypothyroidism; tw2 - PSHx: 17:13 eye surgery; hip surgery; corneal tranplant R eye; left eye enucleation; tw2 - Immunization history:: Adult Immunizations. - Social history:: Smoking status: . ROS: 20:30 Constitutional: Negative for fever, chills, and weight loss. jmm 20:30 Eyes: Positive for pain. 20:30 All other systems are negative. Exam: 20:30 Constitutional: This is a well developed, well nourished patient who is awake, alert, jmm and in no acute distress. Head/Face: atraumatic. 20:30 Neck: Trachea midline, Supple Chest/axilla: Normal chest wall appearance and motion. Cardiovascular: Regular rate and rhythm. No edema appreciated Respiratory: Normal respirations, no respiratory distress appreciated Abdomen/GI: Non distended, soft Back: Normal ROM Skin: General appearance color normal MS/ Extremity: Moves all extremities, no obvious deformities appreciated, no edema noted to the lower extremities Neuro: Awake and alert, normal gait Psych: Behavior is normal, Mood is normal, Patient is cooperative and pleasant 20:30 Eyes: Extraocular movements: intact throughout, Conjunctiva: injected. Vital Signs: 17:05 BP 149 / 87; Pulse 86; Resp 17; Temp 97.9(TE); Pulse Ox 98% on R/A; Weight 74.39 kg (R);tw2 17:57 Pulse 68; Resp 17; Pulse Ox 98% on R/A; tw2 20:57 BP 154 / 104; Pulse 57; Resp 18 S; Pulse Ox 100% on R/A; ca1 22:15 BP 141 / 78; Pulse 61; Resp 18 S; Pulse Ox 100% on R/A; ca1 17:57 nad, pt states "my eye still hurts", pt talking and laughing with other ER pts in tw2 waiting area at this time. MDM: 20:30 Patient medically screened. [facility] 21:29 Data reviewed: vital signs, nurses notes. Counseling: I had a detailed discussion with sagar the patient and/or guardian regarding: the historical points, exam findings, and any diagnostic results supporting the discharge/admit diagnosis. 21:37 ED course: I lens is not appreciated on PE. Will cover with abx and otherwise given [facility] strict return precautions. Patient understood and agrees with the plan of care. . Administered Medications: 22:10 Drug: Gentamicin Drops 0.3 % 2 drops Route: Ophthalmic; Site: right eye; ca1 Disposition: 08/23 11:22 Co-signature as Attending Physician, Иван Chapman MD I agree with the assessment and freda plan of care. Disposition: 08/22/20 21:38 Discharged to Home. Impression: Person with feared health complaint in whom no diagnosis is made. - Condition is Stable. - Medication Reconciliation Form, Thank You Letter, Antibiotic Education, Prescription Opioid Use form. - Follow up: Private Physician; When: Tomorrow; Reason: Recheck today's complaints, Continuance of care, Re-evaluation by your physician. Signatures: Иван Chapman MD MD cha Mickail, Joel, PA PA Soco Reid RN RN tw2 Ruchi Dong RN RN ca1 Corrections: (The following items were deleted from the chart) 08/22 22:16 21:38 08/22/2020 21:38 Discharged to Home. Impression: Person with feared health ca1 complaint in whom no diagnosis is made. Condition is Stable. Forms are Medication Reconciliation Form, Thank You Letter, Antibiotic Education, Prescription Opioid Use. Follow up: Private Physician; When: Tomorrow; Reason: Recheck today's complaints, Continuance of care, Re-evaluation by your physician. emm
[2020-08-22] MEDS ORDERED: GENTAMICIN 0.3% OPTH DROP 5ML ONE (22:21)
[2020-08-22 22:49] VITALS: TEMP 97.9
[2020-08-22 22:52] VITALS: O2SAT 100
[2020-08-22 22:53] VITALS: BP 141/78
== END 2020-08-22 22:16 | disposition home or self-care (01) ==
LOC: ER 16:54
DX: Z71.1 Person with feared health complaint in whom no diagnosis is made (principal); I10 Essential (primary) hypertension; Z88.5 Allergy status to narcotic agent; Z88.6 Allergy status to analgesic agent; Z88.8 Allergy status to other drugs, medicaments and biological substances
CPT/HCPCS: 99284

== ENCOUNTER 2021-10-11 11:32 | Emergency (ER) | payer OTHER ==
--- OUTSIDE RECORDS SUMMARY | 2021-10-11 11:35 | XMS REPORT | Continuity of Care Document ---
:1950 Author Organization [facility] t Address [address] [place] [address] Care Team Providers Name Role Phone EMLIY E Primary Care Physician Unavailable [id number] Attending Clinician Unavailable Theodore GRACE, S Attending Clinician Susan JAIMES Attending Clinician Unavailable Debra ALICIA, L Attending Clinician VITAL Attending Clinician Unavailable [id number] Admitting Clinician Unavailable Payers Payer Name Policy Type Policy Number Effective Date Expiration Date S ource Problems Condition Condition Condition Status Onset Resolution Last Treating Co mments Source Name Details Category Date Date Treatment Clinician Date Primary Primary Disease Active Overview: Univ ers osteoarthr osteoarthr 7-13 Formattin ity of itis of itis of 00:00: g of this [place] left hip left hip 00 note Medica l might be Branch different from the original. Added automatic ally from request for surgery [id number] Allergies, Adverse Reactions, Alerts Allergy Allergy Status Severity Reaction(s) Onset Inactive Treating Comm ents Source Name Type Date Date Clinician NO KNOWN Drug Active Univers ALLERGIE Class ity of [facility] [place] [facility] Social History Social Habit Start Date Stop Date Quantity Comments Source Exposure to 2021-09-23 2021-10-03 Not sure University SARS-CoV-2 00:00:00 15:55:00 [facility] (event) Branch Alcohol intake 2021-01-26 2021-01-26 Lifetime University of 00:00:00 00:00:00 non-drinker [facility] (finding) Branch Tobacco use and 2020-06-28 2020-06-28 Never used Universit y of exposure 00:00:00 00:00:00 [facility] Sex Assigned At [birth year] Universit y of 00:00:00 00:00:00 [facility] Smoking Status Start Date Stop Date Source Never smoker [facility] Medications Ordered Filled Start Stop Current Ordering Indication Dosage Frequency Signature Comments Components Source Medication Medication Date Date Medication? Clinician (SIG) Name Name sodium 2020- No [id number] 30mg Uni vers hyaluronate 10-08 9109 ity of (viscosup) 14:15: 13:08 [place] (ORTHOVISC) 00 :00 Medical injection Branch 30 mg sodium 2020- No [id number] 30mg 30 mg, U nivers hyaluronate 10-08 9109 Intra-faizan i ty of (viscosup) 14:15: 13:08 Donna brantley (ORTHOVISC) 00 :00 ONCE, 1 Medic al injection dose, On Branch 30 mg 10/08/21 at 0915, Routine sodium 2020-04- No [id number] 30mg Uni vers hyaluronate 01-27 9109 ity of (viscosup) 14:15: 02:14 [place] (ORTHOVISC) 00 :00 Medical injection Branch [address] Unive rs min 1,000 7-23 under the ity o f mcg 15:43: tongue. [place] sublingual 54 Medical tablet Branch montelukast Yes 10mg Take 10 mg Univers sodium 7-23 by mouth ity of (MONTELUKAS 15:43: daily. Donna s T ORAL) Medical Branch lifitegrast Yes 1[drp] Place 1 U nivers 5 % Dpet 7-23 Drop in ity of 15:43: right eye [place] 54 2 (two) Medical times Branch daily. omeprazole Yes 40mg Take 40 mg U nivers 40 mg 7-23 by mouth ity of capsule 15:43: daily. [place] [address] Medical Branch HYDROcodone Yes 1{tbl} Take 1 Un flavio -acetaminop 7-23 tablet by ity of hen (NORCO) 15:43: mouth [place] 5-325 mg 54 every 6 Medical tablet (six) Branch hours as needed. metFORMIN Yes 500mg Take 500 Uni vers 500 mg 24 7-23 mg by ity of hr tablet 15:43: mouth [place] 54 daily with Medical breakfast. Branch loteprednol Yes 1[drp] Place 1 U nivers (LOTEMAX) 7-23 Drop in ity of 0.5 % 15:43: right eye [place] ophthalmic 54 2 (two) Medica l suspension times Branch drops daily. tacrolimus Yes Apply to Un flavio 0.1 % 7-23 area(s) at ity of ointment 15:43: bedtime. [place] 54 Right Eye Medical Branch loteprednol Yes Place in U nivers etabonate 7-23 right eye ity o f (LOTEMAX) 15:43: at [place] 0.5 % 54 bedtime. Medical ointment Branch cholecalcif Yes 1000U Take 1,000 Univers nat[place], 7-23 Units by ity of vitamin D3, 15:43: mouth [place] (VITAMIN 54 daily. Medical D3) 25 mcg Branch (1,000 unit) tablet BETA Yes 1{tbl} Take 1 Univers CAROTENE 7-23 tablet by ity of ORAL 15:43: mouth. [place] 54 Medical Branch levothyroxi Yes 75ug Take 75 Uni vers ne 75 mcg 7-10 mcg by ity of tablet 00:00: mouth [place] 00 every Medical morning. Branch losartan-hy Yes 1{tbl} Take 1 Un flavio drochloroth 6-04 tablet by ity of iazide 00:00: mouth [place] 50-12.5 mg 00 daily. Medical per tablet Branch LUMIGAN Yes 1[drp] Place 1 Unive rs 0.01 % 3-05 Drop in ity of ophthalmic 00:00: right eye [place] drops 00 daily. Medical Branch COMBIGAN Yes 1[drp] Place 1 Univ ers 0.2-0.5 % 2-08 Drop in ity of ophthalmic 00:00: right eye [place] drops 00 2 (two) Medical times Branch daily. budesonide- Yes as needed. Univers formoteroL 1-14 ity of 160-4.5 00:00: [place] mcg/actuati 00 Medical on inhaler [place] Vital Signs Vital Name Observation Time Observation Value Comments Source Systolic blood 2021-01-26 13:06:00 132 mm[Hg] Univer sity of [facility] [facility] Diastolic blood 2021-01-26 13:06:00 79 mm[Hg] Anna rshansel [facility] Heart rate 2021-01-26 13:06:00 63 /min [facility] Body height 2021-01-26 13:06:00 144.8 cm [facility] Body weight 2021-01-26 13:06:00 73.936 kg [facility] BMI 2021-01-26 13:06:00 35.27 kg/m2 [facility] Procedures This patient has no known procedures. Encounters Start End Encounter Admission Attending Care Care Encounter Source Date/Time Date/Time Type Type Clinicians Facility Department ID 2021-05-17 Outpatient 3 [id number] [facility] ORJ [id number] [facility] 12:32:59 0721 2021-05-17 Outpatient 3 [id number] [facility] REF [id number] [facility] 12:32:36 0720 2021-01-26 2021-01-26 Office Theodore [facility] [id number] [facility] 08:00:00 08:24:00 Visit [facility] [id number] it y of [place] [id number] Travon as NADYA?BLEA [id number] Nh marciano [address] MEDICAL OFFICE BUILDING 2021-01-26 2021-01-26 Outpatient R THEODORE [facility] [id number] [facility] 08:00:00 08:24:00 AMBER hamm [facility] 2020-06-28 2020-06-28 [facility] [id number] 12:54:41 14:39:[facility] [id number] [facility] [id number] Specialti [id number] [place] 2019-09-21 2019-09-21 Outpatient ELIZABETH LEMONS [facility] [id number] [place] 00:00:00 00:00:[address] Results This patient has no known results.
[2021-10-11] MEDS ORDERED: IBUPROFEN 400 MG TAB ONE (12:46)
[2021-10-11] MEDS ORDERED: LIDOCAINE 4% PATCH ONE (12:46)
--- NOTE | 2021-10-11 13:50 | RAD REPORT ---
EXAM DESCRIPTION: RAD - Shoulder Right 2 View - 10/11/2021 1:43 pm CLINICAL HISTORY: PAIN COMPARISON: Shoulder Right 2 View dated 10/15/2019 FINDINGS/IMPRESSION: No acute fracture. No malalignment. Right AC joint glenohumeral joint degenerat betsey changes. Deformity of the right proximal humerus consistent with remote trauma.
--- NOTE | 2021-10-11 14:35 | EDPHYS ---
Physician Documentation [facility] Name: Amarilys Roberto Age: 71 yrs Sex: Female : 1950 Arrival Date: 10/11/2021 Time: 11:35 Bed 12 Private MD: ED Physician Sam Olmos HPI: 10/11 12:30 This 71 yrs old Black Female presents to ER via Ambulatory with complaints of Shoulder cp Pain. 12:30 The patient or guardian complains of pain, that is acute. cp 12:30 right shoulder, right trapezius and right sternocleidomastoid. Onset: The cp symptoms/episode began/occurred 2 week(s) ago. 12:30 Context: resulted from lifting overhead. cp 12:30 Associated signs and symptoms: The patient has no apparent associated signs or cp symptoms. Severity of symptoms: in the emergency department the symptoms are unchanged, despite home interventions. Historical: - Allergies: 11:50 ACETAMINOPHEN; aa5 11:50 Percodan; aa5 11:50 tramadol; aa5 11:50 Propoxyphene; aa5 - PMHx: 11:50 Diabetes - NIDDM; Hypertension; Hypothyroidism; aa5 11:50 Diverticulosis; aa5 - Immunization history:: Adult Immunizations unknown. - Social history:: Smoking status: Patient denies any tobacco usage or history of. ROS: 12:35 MS/extremity: Positive for pain, tenderness, of the right trapezius and right shoulder, cp Negative for decreased range of motion, deformity, paresthesias. 12:35 Eyes: Negative for injury, pain, redness, and discharge. cp 12:35 Constitutional: Negative for body aches, chills, fever, poor PO intake. 12:35 ENT: Negative for drainage from ear(s), ear pain, sore throat, difficulty swallowing, difficulty handling secretions. 12:35 Neck: Negative for injury or acute deformity, stiffness, bony tenderness. 12:35 Cardiovascular: Negative for chest pain, palpitations. 12:35 Respiratory: Negative for cough, shortness of breath, wheezing. 12:35 Abdomen/GI: Negative for abdominal pain, nausea, vomiting, and diarrhea. 12:35 Back: Negative for pain at rest, pain with movement. 12:35 Neuro: Negative for altered mental status, headache, numbness, weakness. 12:35 All other systems are negative. Exam: 12:40 Constitutional: The patient appears in no acute distress, alert, awake, cp non-diaphoretic, non-toxic, well developed, well nourished. 12:40 Head/Face: Normocephalic, atraumatic. cp 12:40 Eyes: Periorbital structures: appear normal, Conjunctiva: normal, no exudate, no injection, Lids and lashes: appear normal, bilaterally. 12:40 ENT: External ear(s): are unremarkable, Nose: is normal, Mouth: Lips: moist, Oral mucosa: pink and intact, moist, Posterior pharynx: Airway: no evidence of obstruction, patent. 12:40 Neck: External neck: tenderness, that is mild, right lateral neck, C-spine: vertebral tenderness, is not appreciated, crepitus, is not appreciated, ROM/movement: pain, that is mild, with rotation to the left, with rotation to the right, limited range of motion, is not appreciated, Meningeal signs: are not present, nuchal rigidity, is not appreciated. 12:40 Chest/axilla: Inspection: normal. 12:40 Cardiovascular: Rate: normal, Rhythm: regular. 12:40 Respiratory: the patient does not display signs of respiratory distress, Respirations: normal, no use of accessory muscles, no retractions, labored breathing, is not present, Breath sounds: are clear throughout, no decreased breath sounds, no stridor, no wheezing. 12:40 Abdomen/GI: Inspection: abdomen appears normal, Palpation: abdomen is soft and non-tender, in all quadrants. 12:40 Back: ROM is normal, vertebral tenderness, is not appreciated. 12:40 Musculoskeletal/extremity: Extremities: grossly normal except: noted in the right lateral and posterior shoulder: pain, tenderness, There is no evidence of decreased ROM, deformity, ROM: full passive range of motion, in the right shoulder, Pulses: noted to be 2+ in the right radial artery, the right arm Sensation intact. 12:40 Skin: no rash present. Vital Signs: 11:49 BP 131 / 79; Pulse 77; Resp 16 S; Temp 97.8(TE); Pulse Ox 99% on R/A; Weight 68.95 kg aa5 (R); Height 4 ft. 9 in. (144.78 cm) (R); 11:49 Body Mass Index 32.89 (68.95 kg, 144.78 cm) aa5 MDM: 12:25 Patient medically screened. 14:35 Data reviewed: vital signs, nurses notes, radiologic studies, plain films. cp 14:35 Differential diagnosis: Anterior dislocation with fracture, Anterior dislocation cp without fracture, Posterior dislocation with fracture, Posterior dislocation without fracture, tendonitis. Test interpretation: by ED physician or midlevel provider: plain radiologic studies. Counseling: I had a detailed discussion with the patient and/or guardian regarding: the historical points, exam findings, and any diagnostic results supporting the discharge/admit diagnosis, radiology results. Response to treatment: the patient's symptoms have markedly improved after treatment, and as a result, I will discharge patient. 10/11 12:21 Order name: XRAY Shoulder RIGHT 2 view; Complete Time: 14:34 aa5 10/11 14:34 Interpretation: Reviewed. 10/11 14:50 Order name: Sling; Complete Time: 14:51 ss Administered Medications: 12:46 Drug: Ibuprofen 800 mg Route: PO; ss 14:51 Follow up: Response: No adverse reaction; Pain is decreased; RASS: Alert and Calm (0) ss 12:53 Drug: Lidoderm Patch 5 % (700 mg/patch) 1 patches {Note: applied to R shoulder. 4% ss administered as available from pharmacy. ROCÍO Matamoros notified.} Route: Topical; Site: affected area; Disposition Summary: 10/11/21 14:35 Discharge Ordered Location: Home cp Problem: new cp Symptoms: have improved cp Condition: Stable cp Diagnosis - Pain in right shoulder cp Followup: cp - With: Frederic Irvin MD - When: 2 - 3 days - Reason: Recheck today's complaints Discharge Instructions: - Discharge Summary Sheet cp - Shoulder Pain cp - Shoulder Range of Motion Exercises cp Forms: - Medication Reconciliation Form cp - Thank You Letter cp - Antibiotic Education cp - Prescription Opioid Use cp Prescriptions: - Cyclobenzaprine 10 mg Oral Tablet - take 1 tablet by ORAL route every 8 hours As needed; 20 tablet; Refills: 0, cp Product Selection Permitted - Mobic 7.5 mg Oral Tablet - take 1 tablet by ORAL route once daily take with food; 20 tablet; Refills: 0, cp Product Selection Permitted - Lidoderm 5 % Topical adhesive patch,medicated - apply 1 patch by TOPICAL route once daily; 20 patch; Refills: 0, Product cp Selection Permitted Addendum: 10/15/2021 19:12 Co-signature as Attending Physician, Sam Olmos MD I agree with the assessment and dr plan of care. Signatures: Dispatcher [employer] [facility] Sam Olmos MD MD [facility] Thais Inman RN RN aa5 Yenni Baxter RN RN ss Иван Marsh PA PA cp Corrections: (The following items were deleted from the chart) 10/12 13:01 10/11 12:30 Onset: The symptoms/episode began/occurred 1 week(s) ago, cp cp
--- NOTE | 2021-10-11 14:35 | ER ---
Nurse's Notes [facility] Name: Amarilys Roberto Age: 71 yrs Sex: Female : 1950 Arrival Date: 10/11/2021 Time: 11:35 Bed 12 Private MD: Diagnosis: Pain in right shoulder Presentation: 10/11 11:49 Chief complaint: Patient states: "I was reaching with my right arm and I felt something aa5 pop in my right shoulder and it's been almost 2 weeks ago now". Pt c/o pain to right shoulder. Coronavirus screen: At this time, the client does not indicate any symptoms associated with coronavirus-19. Ebola Screen: Patient denies travel to an Ebola-affected area in the 21 days before illness onset. Initial Sepsis Screen: Does the patient meet any 2 criteria? No. Patient's initial sepsis screen is negative. Does the patient have a suspected source of infection? No. Patient's initial sepsis screen is negative. Risk Assessment: Do you want to hurt yourself or someone else? Patient reports no desire to harm self or others. Onset of symptoms was September 2021. 11:49 Acuity: DUNCAN 4 aa5 11:49 Method Of Arrival: Ambulatory aa5 Historical: - Allergies: 11:50 ACETAMINOPHEN; aa5 11:50 Percodan; aa5 11:50 tramadol; aa5 11:50 Propoxyphene; aa5 - PMHx: 11:50 Diabetes - NIDDM; Hypertension; Hypothyroidism; aa5 11:50 Diverticulosis; aa5 - Immunization history:: Adult Immunizations unknown. - Social history:: Smoking status: Patient denies any tobacco usage or history of. Screenin:03 Abuse screen: Denies threats or abuse. Denies injuries from another. Nutritional ss screening: No deficits noted. Tuberculosis screening: Never had TB. 14:24 Fall Risk None identified. ss Assessment: 13:19 General: Appears in no apparent distress. comfortable, Behavior is calm, cooperative. ss Pain: Complains of pain in R shoulder. Neuro: Beard Agitation-Sedation Scale (RASS): 0 - Alert and Calm Level of Consciousness is awake, alert, obeys commands, Oriented to person, place, time, situation. Cardiovascular: Pulses are palpable in right radial artery and left radial artery. Respiratory: Airway is patent Respiratory effort is even, unlabored, Respiratory pattern is regular, symmetrical. GI: No signs and/or symptoms were reported involving the gastrointestinal system. Derm: Skin is intact, is healthy with good turgor, Skin is dry, Skin is pink, warm \\T\\ dry. normal. 14:24 Reassessment: Patient appears in no apparent distress at this time. Patient and/or ss family updated on plan of care and expected duration. Pain level reassessed. Patient is alert, oriented x 3, equal unlabored respirations, skin warm/dry/pink. XRAY results back. Awaiting disposition. 14:51 Reassessment: Patient appears in no apparent distress at this time. Patient and/or ss family updated on plan of care and expected duration. Pain level reassessed. Patient states feeling better. Patient states symptoms have improved. Vital Signs: 11:49 BP 131 / 79; Pulse 77; Resp 16 S; Temp 97.8(TE); Pulse Ox 99% on R/A; Weight 68.95 kg aa5 (R); Height 4 ft. 9 in. (144.78 cm) (R); 11:49 Body Mass Index 32.89 (68.95 kg, 144.78 cm) aa5 ED Course: 11:35 Patient arrived in ED. rg4 11:49 Arm band placed on. aa5 11:50 Triage completed. aa5 12:03 Yenni Baxter, RN is Primary Nurse. ss 12:03 Patient has correct armband on for positive identification. Bed in low position. Call ss light in reach. 12:05 Иван Marsh [facility]. cp 12:05 Sam Olmos MD is Attending Physician. cp 13:44 XRAY Shoulder RIGHT 2 view In Process Unspecified. EDMS 14:34 Frederic Irvin MD is Referral Physician. cp 14:50 No provider procedures requiring assistance completed. Patient did not have IV access ss during this emergency room visit. Sling applied to right arm. Administered Medications: 12:46 Drug: Ibuprofen 800 mg Route: PO; ss 14:51 Follow up: Response: No adverse reaction; Pain is decreased; RASS: Alert and Calm (0) ss 12:53 Drug: Lidoderm Patch 5 % (700 mg/patch) 1 patches {Note: applied to R shoulder. 4% ss administered as available from pharmacy. ROCÍO Matamoros notified.} Route: Topical; Site: affected area; Medication: 13:19 VIS not applicable for this client. ss Outcome: 14:35 Discharge ordered by . meenu 14:51 Patient left the ED. ss Signatures: Dispatcher [employer] EDThais Martinez RN RN aa5 Yenni Baxter RN RN Иван Carmen PA PA cp Garcia, Rubi rg4
[2021-10-11 14:59] VITALS: BP 131/79; TEMP 97.8; O2SAT 99
== END 2021-10-11 14:51 | disposition home or self-care (01) ==
LOC: ER 11:32
DX: M25.511 Pain in right shoulder (principal); E11.9 Type 2 diabetes mellitus without complications; I10 Essential (primary) hypertension; Z88.5 Allergy status to narcotic agent; Z88.6 Allergy status to analgesic agent; Z88.8 Allergy status to other drugs, medicaments and biological substances
CPT/HCPCS: 73030; 99283; J2001

== ENCOUNTER 2021-10-16 16:43 | Emergency (ER) | payer OTHER ==
--- OUTSIDE RECORDS SUMMARY | 2021-10-16 16:46 | XMS REPORT | Continuity of Care Document ---
:1950 Author Organization [facility] t Address [address] [place] [address] Care Team Providers Name Role Phone Renetta DIAZ Primary Care Physician Unavailable [id number] Attending Clinician Unavailable Theodore GRACE, S Attending Clinician Susan JAIMSE Attending Clinician Unavailable Debra ALICIA, L Attending Clinician VITAL Attending Clinician Unavailable [id number] Admitting Clinician Unavailable Payers Payer Name Policy Type Policy Number Effective Date Expiration Date S ource Problems Condition Condition Condition Status Onset Resolution Last Treating Co mments Source Name Details Category Date Date Treatment Clinician Date Primary Primary Disease Active Overview: Univ ers osteoarthr osteoarthr 7-13 Formattin ity of itis of itis of 00:00: g of this [place] left hip left hip 00 note Medica l might be Branch different from the original. Added automatic ally from request for surgery [id number] Allergies, Adverse Reactions, Alerts Allergy Allergy Status Severity Reaction(s) Onset Inactive Treating Comm ents Source Name Type Date Date Clinician NO KNOWN Drug Active Univers ALLERGIE Class ity of [facility] [place] [facility] Social History Social Habit Start Date Stop Date Quantity Comments Source Exposure to 2021-09-23 2021-10-03 Not sure University SARS-CoV-2 00:00:00 15:55:00 [facility] (event) Branch Alcohol intake 2021-01-26 2021-01-26 Lifetime University of 00:00:00 00:00:00 non-drinker [facility] (finding) Branch Tobacco use and 2020-06-28 2020-06-28 Never used Universit y of exposure 00:00:00 00:00:00 [facility] Sex Ass[birth year] Universit y of 00:00:00 00:00:00 [facility] Smoking Status Start Date Stop Date Source Never smoker [facility] Medications Ordered Filled Start Stop Current Ordering Indication Dosage Frequency Signature Comments Components Source Medication Medication Date Date Medication? Clinician (SIG) Name Name sodium 2020- No [id number] 30mg Uni vers hyaluronate 10-08 9109 ity of (viscosup) 14:15: 13:08 [place] (ORTHOVISC) 00 :00 Medical injection Branch 30 mg sodium 2020- No [id number] 30mg 30 mg, U nivers hyaluronate 10-08 9109 Intra-faizan i ty of (viscosup) 14:15: 13:08 Donna brantley (ORTHOVISC) 00 :00 ONCE, 1 Medic al injection dose, On Branch 30 mg 10/08/21 at 0915, Routine sodium 2020-04- No [id number] 30mg Uni vers hyaluronate 01-27 9109 ity of (viscosup) 14:15: 02:14 [place] (ORTHOVISC) 00 :00 Medical injection Branch [address] Unive rs min 1,000 7-23 under the ity o f mcg 15:43: tongue. [place] sublingual 54 Medical tablet Branch montelukast Yes 10mg Take 10 mg Univers sodium 7-23 by mouth ity of ([place] 15:43: daily. Donna s T ORAL) Medical Branch lifitegrast Yes 1[drp] Place 1 U nivers 5 % Dpet 7-23 Drop in ity of 15:43: right eye [place] 54 2 (two) Medical times Branch daily. omeprazole Yes 40mg Take 40 mg U nivers 40 mg 7-23 by mouth ity of capsule 15:43: daily. [place] [address] Medical Branch HYDROcodone Yes 1{tbl} Take 1 [...] area(s) at ity of ointment 15:43: bedtime. [place] 54 Right Eye Medical Branch loteprednol Yes [...] tablet by ity of ORAL 15:43: mouth. [place] 54 Medical Branch levothyroxi Yes 75ug Take [...] 00:00: [place] mcg/actuati 00 Medical on inhaler [place] Vital Signs Vital Name Observation Time Observation Value Comments Source Systolic blood 2021-01-26 13:06:00 132 mm[Hg] Univer [facility] of [facility] Diastolic blood 2021-01-26 13:06:00 79 mm[Hg] Anna rshansel [facility] Heart rate 2021-01-26 13:06:00 63 /min [facility] Body height 2021-01-26 13:06:00 144.8 cm [facility] Body weight 2021-01-26 13:06:00 73.936 kg [facility] BMI 2021-01-26 13:06:00 35.27 kg/m2 [facility] Procedures This patient has no known procedures. Encounters Start End Encounter Admission Attending Care Care Encounter Source Date/Time Date/Time Type Type Clinicians Facility Department ID 2021-05-17 Outpatient 3 [id number] [facility] ORJ [id number] [facility] 12:32:59 0721 2021-05-17 Outpatient 3 [id number] [facility] REF [id number] [facility] 12:32:36 0720 2021-01-26 2021-01-26 Office Theodore RUST [id number] [facility] 08:00:00 08:24:00 Visit [facility] [id number] it y of [place] [id number] [place] as NADYA?BLEA [id number] [place] marciano [address] MEDICAL OFFICE BUILDING 2021-01-26 2021-01-26 Outpatient R [facility] [id number] [facility] 08:00:00 08:24:[address] [facility] 2020-06-28 2020-06-28 Office [facility] [id number] 12:54:41 14:39:32 [facility] [id number] Surgical [id number] Specialti [id number] [place] 2019-09-21 2019-09-21 Outpatient ELIZABETH LEMONS [facility] [id number] [place] 00:00:00 00:00:[address] Results This patient has no known results.
--- NOTE | 2021-10-16 17:50 | RAD REPORT ---
EXAM DESCRIPTION: CT - Head Brain Wo Cont - 10/16/2021 5:44 pm CLINICAL HISTORY: fall, head injury, worse today, headache COMPARISON: Head Brain Wo Cont dated 04/17/2019 TECHNIQUE: All CT scans are performed using dose optimization technique as appropriate and may inclu de automated exposure control or mA/KV adjustment according to patient size. FINDINGS: No intracranial hemorrhage, hydrocephalus or extra-axial fluid collection.Moderate diffuse brain atrophy. 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 The paranasal sinuses and mastoids are clear. The calvarium is intact. IMPRESSION: No acute intracranial abnormality.
--- NOTE | 2021-10-16 17:55 | EDPHYS ---
Physician Documentation [facility] Name: Amarilys Roberto Age: 71 yrs Sex: Female : 1950 Arrival Date: 10/16/2021 Time: 16:47 Bed 4 Private MD: ED Physician Blaise Smith HPI: 10/16 16:55 This 71 yrs old Black Female presents to ER via EMS with complaints of Fall Injury, rn head injury. 16:55 Details of fall: The patient fell from a supine position, out of bed. Onset: The rn symptoms/episode began/occurred last night. Associated injuries: The patient sustained injury to the head. Severity of symptoms: At their worst the symptoms were mild, in the emergency department the symptoms are unchanged. The patient has not experienced similar symptoms in the past. The patient has not recently seen a physician. Pt reports fell out of bed last night, hit head on bed frame or box frame, no LOC, no anticoagulation, reports today head hurts more than last night. No vomiting. Remembers all events. No neck/back/rib/extremity pain/abd pain. NO seizure. . Historical: - Allergies: 16:51 ACETAMINOPHEN; ss 16:51 Percodan; ss 16:51 Propoxyphene; ss 16:51 tramadol; ss - PMHx: 16:51 Diabetes - NIDDM; diverticulosis; Hypertension; Hypothyroidism; ss - Immunization history:: Client reports receiving the 2nd dose of the Covid vaccine. - Social history:: Smoking status: Patient denies any tobacco usage or history of. - Immunization history: Last tetanus immunization: - up to date. - Family history:: not pertinent. - Hospitalizations: : No recent hospitalization is reported. ROS: 16:55 Constitutional: Negative for fever, chills, and weight loss, Eyes: Negative for injury, rn pain, redness, and discharge, Neck: Negative for injury, pain, and swelling, Cardiovascular: Negative for chest pain, palpitations, and edema, Respiratory: Negative for shortness of breath, wheezing, and pleuritic chest pain, Abdomen/GI: Negative for abdominal pain, nausea, vomiting, diarrhea, and constipation, Back: Negative for injury and pain, MS/Extremity: Negative for injury and deformity, Skin: Negative for injury, rash, and discoloration, Neuro: Negative for weakness, numbness, tingling, and seizure. Exam: 16:55 Constitutional: This is a well developed, well nourished patient who is awake, alert, rn and in no acute distress. Head/Face: Normocephalic, + small right occipital contusion and hematoma, no laceration Eyes: Periorbital areas with no swelling, redness, or edema. Neck: Trachea midline, no midline cervical tenderness Chest/axilla: Normal chest wall appearance and motion. Nontender with no deformity. Cardiovascular: Regular rate and rhythm. No pulse deficits. Respiratory: No increased work of breathing, no retractions or nasal flaring. Abdomen/GI: Soft, non-tender Skin: Warm, dry MS/ Extremity: Pulses equal, no cyanosis. Neurovascular intact. Full, normal range of motion. Equal circumference. Neuro: Awake and alert, GCS 15, oriented to person, place, time, and situation. Cranial nerves II-XII grossly intact. Motor strength 5/5 in all extremities. Sensory grossly intact. Vital Signs: 16:47 BP 127 / 79; Pulse 73; Resp 16; Temp 97.6(TE); Pulse Ox 99% on R/A; Weight 68.95 kg; ss Height 4 ft. 9 in. (144.78 cm); Pain 7/10; 18:14 BP 117 / 81; Pulse 73; Resp 16; Pulse Ox 98% ; bp 16:47 Body Mass Index 32.89 (68.95 kg, 144.78 cm) ss Liverpool Coma Score: 16:47 Eye Response: spontaneous(4). Verbal Response: oriented(5). Motor Response: obeys ss commands(6). Total: 15. Trauma Score (Adult): 16:47 Eye Response: spontaneous(1); Verbal Response: oriented(1); Motor Response: obeys ss commands(2); Systolic BP: > 89 mm Hg(4); Respiratory Rate: 10 to 29 per min(4); Liverpool Score: 15; Trauma Score: 12 MDM: 16:48 Patient medically screened. rn 17:53 Differential diagnosis: closed head injury, contusion, fracture. Data reviewed: vital rn signs, nurses notes, radiologic studies, CT scan, and as a result, I will discharge patient. Counseling: I had a detailed discussion with the patient and/or guardian regarding: the historical points, exam findings, and any diagnostic results supporting the discharge/admit diagnosis, radiology results, the need for outpatient follow up, to return to the emergency department if symptoms worsen or persist or if there are any questions or concerns that arise at home. Special discussion: Based on the patient's history, exam and DX evaluation, there is no indication for emergent intervention or inpatient [place]. It is understood by the patient/guardian that if the SXs persist or worsen they need to return immediately for re-evaluation. I discussed with the patient/guardian in detail that at this point there is no indication for admission to the hospital. It is understood, however, that if the symptoms persist or worsen the patient needs to return immediately for re-evaluation. 10/16 16:49 Order name: CT Head Brain wo Cont; Complete Time: 17:53 rn Administered Medications: 18:11 Drug: Motrin (ibuprofen) 600 mg Route: PO; bp 18:17 Follow up: Response: No adverse reaction bp Disposition Summary: 10/16/21 17:54 Discharge Ordered Location: Home rn Problem: new rn Symptoms: have improved rn Condition: Stable rn Diagnosis - Unspecified injury of head, initial encounter rn Followup: rn - With: Private Physician - When: As needed - Reason: Recheck today's complaints, Re-evaluation by your physician Discharge Instructions: - Discharge Summary Sheet rn - Head Injury, Adult rn Forms: - Medication Reconciliation Form rn - Thank You Letter rn - 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
--- NOTE | 2021-10-16 17:55 | ER ---
Nurse's Notes [facility] Name: Amarilys Roberto Age: 71 yrs Sex: Female : 1950 Arrival Date: 10/16/2021 Time: 16:47 Bed 4 Private MD: Diagnosis: Unspecified injury of head, initial encounter Presentation: 10/16 16:47 Chief complaint: Patient states: Fell out of bed last night, hitting head on wooden ss baseboard. Denies LOC. Care prior to arrival: None. Mechanism of Injury: Fall out of bed. Trauma event details: Injury occurred in the [facility], Injury occurred: at home. Injury occurred: October 15, 2021. 16:47 Acuity: DUNCAN 4 ss 16:47 Method Of Arrival: EMS: [facility] ss 16:50 Coronavirus screen: Client denies travel out of the [place] in the last 14 days. Ebola ss Screen: Patient denies exposure to infectious person. Patient denies travel to an Ebola-affected area in the 21 days before illness onset. Initial Sepsis Screen: Does the patient meet any 2 criteria? No. Patient's initial sepsis screen is negative. Does the patient have a suspected source of infection? No. Patient's initial sepsis screen is negative. Risk Assessment: Do you want to hurt yourself or someone else? Patient reports no desire to harm self or others. Onset of symptoms was October 15, 2021. Triage Assessment: 17:00 General: SEE TRAUMA TAB. bp Trauma Activation: Not Applicable Physician: ED Physician; Name: ; Notified At: ; Arrived At: Physician: General Surgeon; Name: ; Notified At: ; Arrived At: Physician: Radiology; Name: ; Notified At: ; Arrived At: Physician: Respiratory; Name: ; Notified At: ; Arrived At: Physician: Lab; Name: ; Notified At: ; Arrived At: Historical: - Allergies: 16:51 ACETAMINOPHEN; ss 16:51 Percodan; ss 16:51 Propoxyphene; ss 16:51 tramadol; ss - PMHx: 16:51 Diabetes - NIDDM; diverticulosis; Hypertension; Hypothyroidism; ss - Immunization history:: Client reports receiving the 2nd dose of the Covid vaccine. - Social history:: Smoking status: Patient denies any tobacco usage or history of. - Immunization history: Last tetanus immunization: - up to date. - Family history:: not pertinent. - Hospitalizations: : No recent hospitalization is reported. Screenin:47 Abuse screen: Denies threats or abuse. Denies injuries from another. Tuberculosis ss screening: Never had TB. 18:14 Nutritional screening: No deficits noted. Fall Risk Fall in past 12 months (25 points). bp No secondary diagnosis (0 pts). No IV (0 pts). Ambulatory Aid- None/Bed Rest/Nurse Assist (0 pts). Gait- Normal/Bed Rest/Wheelchair (0 pts) Mental Status- Oriented to own ability (0 pts). Total Abdullahi Fall Scale indicates Low Risk Score (25-44 pts). Fall prevention measures have been instituted. Placed close to Nursing Station As available Patient and Family Educated on Fall Prevention Program and strategies. Primary Survey: 16:47 NO uncontrolled hemorrhage observed. A: The client is awake and alert. The airway is ss patent. Breathing/Chest: Spontaneous respiratory effort, equal unlabored respirations, breath sounds clear bilaterally, regular pattern, symmetrical chest rise and fall. Circulation: No external hemorrhage present. Regular and strong central pulse, skin warm/dry/normal color. Disability Pupils are equal, round, reactive to light and accommodation. Exposure/Environment: There is no evidence of uncontrolled external bleeding. 18:16 Reassessment Breathing: Spontaneous respiratory effort, equal unlabored respirations, bp breath sounds clear bilaterally, regular pattern with symmetrical chest rise and fall. Assessment: 17:00 General: Appears in no apparent distress. uncomfortable, Behavior is cooperative, bp appropriate for age, anxious. Pain: Complains of pain in scalp. Neuro: Level of Consciousness is awake, alert, obeys commands, Oriented to Appropriate for age. EENT: No deficits noted. Cardiovascular: No deficits noted. Respiratory: No deficits noted. GI: No signs and/or symptoms were reported involving the gastrointestinal system. : No signs and/or symptoms were reported regarding the genitourinary system. Derm: No deficits noted. Musculoskeletal: Reports pain in right knee. Injury Description: Laceration sustained to scalp. 18:14 Reassessment: PT D/C HOME AMBULATORY, DX WITH HEAD INJURY. bp Vital Signs: 16:47 BP 127 / 79; Pulse 73; Resp 16; Temp 97.6(TE); Pulse Ox 99% on R/A; Weight 68.95 kg; ss Height 4 ft. 9 in. (144.78 cm); Pain 7/10; 18:14 BP 117 / 81; Pulse 73; Resp 16; Pulse Ox 98% ; bp 16:47 Body Mass Index 32.89 (68.95 kg, 144.78 cm) ss Brie Coma Score: 16:47 Eye Response: spontaneous(4). Verbal Response: oriented(5). Motor Response: obeys ss commands(6). Total: 15. Trauma Score (Adult): 16:47 Eye Response: spontaneous(1); Verbal Response: oriented(1); Motor Response: obeys ss commands(2); Systolic BP: > 89 mm Hg(4); Respiratory Rate: 10 to 29 per min(4); Brie Score: 15; Trauma Score: 12 ED Course: 16:47 Patient arrived in ED. ss 16:47 Patient has correct armband on for positive identification. ss 16:47 Patient maintains SpO2 saturation greater than 95% on room air. ss 16:48 Blaise Smith MD is Attending Physician. rn 16:48 Triage completed. ss 16:51 Arm band placed on right wrist. ss 17:29 Chemo James, RN is Primary Nurse. bp 17:45 CT Head Brain wo Cont In Process Unspecified. EDMS 18:14 No provider procedures requiring assistance completed. Patient did not have IV access bp during this emergency room visit. 18:16 Thermoregulation: warm blanket given to patient. bp Administered Medications: 18:11 Drug: Motrin (ibuprofen) 600 mg Route: PO; bp 18:17 Follow up: Response: No adverse reaction bp Medication: 18:14 VIS not applicable for this client. bp Intake: 18:16 PO: 240ml; Total: 240ml. bp Outcome: 17:54 Discharge ordered by . rn 18:14 Discharged to home ambulatory. bp 18:14 Condition: stable 18:14 Discharge instructions given to patient, Instructed on discharge instructions, follow up and referral plans. Demonstrated understanding of instructions, follow-up care. 18:16 Patient's length of stay was not longer than 2 hours. bp 18:22 Patient left the ED. bp Signatures: Dispatcher [employer] EDMS Blaise Smith MD MD rn Smirch, Shelby, RN RN Chemo James RN RN bp
[2021-10-16] MEDS ORDERED: IBUPROFEN 200 MG TAB PO ONE (18:12)
[2021-10-16 18:54] VITALS: TEMP 97.6
[2021-10-16 18:57] VITALS: BP 117/81; O2SAT 98
== END 2021-10-16 18:22 | disposition home or self-care (01) ==
LOC: ER 16:43
DX: S09.90XA Unspecified injury of head, initial encounter (principal); E11.9 Type 2 diabetes mellitus without complications; I10 Essential (primary) hypertension; Z88.5 Allergy status to narcotic agent; Z88.6 Allergy status to analgesic agent; Z88.8 Allergy status to other drugs, medicaments and biological substances
CPT/HCPCS: 70450

== ENCOUNTER 2021-10-26 07:44 | Emergency (ER) | payer OTHER ==
--- NOTE | 2021-10-26 10:17 | ER ---
Nurse's Notes [facility] Name: Amarilys Roberto Age: 71 yrs Sex: Female : 1950 Arrival Date: 10/26/2021 Time: 07:45 Bed Waiting Private MD: Luis Alfredo Allen E Diagnosis: Coronavirus infection, unspecified;rhinorrhea;myalgias Presentation: 10/26 07:51 Chief complaint: Patient states: cough, congestion x 1 week, denies fever. Coronavirus jl7 screen: congestion, cough unrelated to allergies, Client presents with at least one sign or symptom that may indicate coronavirus-19. Standard/surgical mask placed on the client. Ebola Screen: No symptoms or risks identified at this time. Initial Sepsis Screen: Does the patient meet any 2 criteria? No. Patient's initial sepsis screen is negative. Does the patient have a suspected source of infection? No. Patient's initial sepsis screen is negative. Risk Assessment: Do you want to hurt yourself or someone else? Patient reports no desire to harm self or others. Onset of symptoms was October 19, 2021. 07:51 Method Of Arrival: Ambulatory [facility] 07:51 Acuity: DUNCAN 4 jl7 Triage Assessment: 07:51 Headache History: The patient has had previous headaches and this one is similar to jl7 previous episodes. General: Appears in no apparent distress. uncomfortable, Behavior is calm, cooperative, appropriate for age. Pain: Complains of pain in throat Pain currently is 6 out of 10 on a pain scale. Pain began x1 week Also complains of no other associated symptoms. Neuro: Level of Consciousness is awake, alert, obeys commands, Oriented to person, place, time, situation. Historical: - Allergies: 07:51 ACETAMINOPHEN; jl7 07:51 Percodan; jl7 07:51 Propoxyphene; jl7 07:51 tramadol; jl7 - PMHx: 07:51 Diabetes - NIDDM; diverticulosis; Hypertension; Hypothyroidism; jl7 - Immunization history:: Client reports receiving the 2nd dose of the Covid vaccine. - Social history:: Smoking status: Patient denies any tobacco usage or history of. Vital Signs: 07:51 BP 140 / 88; Pulse 63; Resp 17; Temp 97.7; Pulse Ox 100% ; Weight 67.13 kg; Height 4 jl7 ft. 9 in. (144.78 cm); Pain 6/10; 11:09 BP 152 / 70; Pulse 63; Resp 17; Temp 97.9; Pulse Ox 99% ; jl7 07:51 Body Mass Index 32.03 (67.13 kg, 144.78 cm) jl7 ED Course: 07:45 Patient arrived in ED. am2 07:45 Luis Alfredo Allen MD is Private Physician. am2 07:48 Darrick Lee DO is Attending Physician. ms3 07:51 Arm band placed on right wrist. jl7 07:56 Triage completed. jl7 08:42 SARS-COV-2 RT PCR (Document "Date of Onset" if Symptomatic) Sent. mb7 10:13 Notified ED physician of a critical lab result(s). COVID is positive. jl7 10:16 Luis Alfredo Allen MD is Referral Physician. ms3 11:09 Patient did not have IV access during this emergency room visit. jl7 Administered Medications: No medications were administered Medication: 11:09 VIS not applicable for this client. jl7 Outcome: 10:17 Discharge ordered by . ms3 11:09 Discharged to home ambulatory. jl7 11:09 Condition: stable 11:09 Discharge instructions given to patient, Instructed on discharge instructions, follow up and referral plans. Demonstrated understanding of instructions, follow-up care. 11:10 Patient left the ED. jl7 Signatures: Praful Lund RN RN jl7 Luci Hudson am2 Darrick Lee DO DO ms3 Isabela Hurst mb7
--- NOTE | 2021-10-26 10:17 | EDPHYS ---
Physician Documentation [facility] Name: Amarilys Roberto Age: 71 yrs Sex: Female : 1950 Arrival Date: 10/26/2021 Time: 07:45 Bed Waiting Private MD: Luis Alfredo Allen E ED Physician Darrick Lee HPI: 10/26 08:08 This 71 yrs old Black Female presents to ER via Ambulatory with complaints of Cough, ms3 Headache, r/o covid. 08:08 The patient or guardian reports cough. ms3 08:09 Onset: The symptoms/episode began/occurred 1 week(s) ago. Severity of symptoms: At ms3 their worst the symptoms were moderate, in the emergency department the symptoms are unchanged. Modifying factors: The symptoms are alleviated by nothing, the symptoms are aggravated by nothing. Associated signs and symptoms: Pertinent positives: rhinorrhea, Pertinent negatives: diarrhea, sore throat, vomiting. Historical: - Allergies: 07:51 ACETAMINOPHEN; jl7 07:51 Percodan; jl7 07:51 Propoxyphene; jl7 07:51 tramadol; jl7 - PMHx: 07:51 Diabetes - NIDDM; diverticulosis; Hypertension; Hypothyroidism; jl7 - Immunization history:: Client reports receiving the 2nd dose of the Covid vaccine. - Social history:: Smoking status: Patient denies any tobacco usage or history of. ROS: 08:09 Eyes: Negative for injury, pain, redness, and discharge, Neck: Negative for injury, ms3 pain, and swelling, Cardiovascular: Negative for chest pain, and palpitations. 08:09 Abdomen/GI: Negative for abdominal pain, nausea, vomiting, diarrhea, and constipation, MS/Extremity: Negative for injury and deformity, Skin: Negative for injury, rash, and discoloration. 08:09 Constitutional: Positive for body aches, chills, malaise. 08:09 Respiratory: Positive for cough. 08:09 All other systems are negative. Exam: 08:09 Constitutional: This is a well developed, well nourished patient who is awake, alert, ms3 and in no acute distress. Head/Face: Normocephalic, atraumatic. Neck: Trachea midline, no cervical lymphadenopathy. Supple, full range of motion without nuchal rigidity, or vertebral point tenderness. No Meningismus. Chest/axilla: Normal chest wall appearance and motion. Nontender with no deformity. Cardiovascular: Regular rate and rhythm with a normal S1 and S2. No gallops, murmurs, or rubs. Normal PMI, no JVD. No pulse deficits. Respiratory: Lungs have equal breath sounds bilaterally, clear to auscultation and percussion. No rales, rhonchi or wheezes noted. No increased work of breathing, no retractions or nasal flaring. Abdomen/GI: Soft, non-tender, with normal bowel sounds. No distension or tympany. No guarding or rebound. No evidence of tenderness throughout. Skin: Warm, dry with normal turgor. Normal color with no rashes, no lesions, and no evidence of cellulitis. MS/ Extremity: Pulses equal, no cyanosis. Neurovascular intact. Full, normal range of motion. Psych: Awake, alert, with orientation to person, place and time. Behavior, mood, and affect are within normal limits. Vital Signs: 07:51 BP 140 / 88; Pulse 63; Resp 17; Temp 97.7; Pulse Ox 100% ; Weight 67.13 kg; Height 4 jl7 ft. 9 in. (144.78 cm); Pain 6/10; 11:09 BP 152 / 70; Pulse 63; Resp 17; Temp 97.9; Pulse Ox 99% ; jl7 07:51 Body Mass Index 32.03 (67.13 kg, 144.78 cm) jl7 MDM: 07:52 Patient medically screened. ms3 08:09 Differential Diagnosis: Bronchitis Upper Respiratory Infection Other COVID. ms3 10:56 Data reviewed: vital signs, nurses notes, lab test result(s), and as a result, I will ms3 discharge patient. Counseling: I had a detailed discussion with the patient and/or guardian regarding: the historical points, exam findings, and any diagnostic results supporting the discharge/admit diagnosis, lab results, the need for outpatient follow up. ED course: . 10/26 07:55 Order name: SARS-COV-2 RT PCR (Document "Date of Onset" if Symptomatic); Complete Time: ms3 10:17 Administered Medications: No medications were administered Disposition Summary: 10/26/21 10:17 Discharge Ordered Location: Home ms3 Condition: Stable ms3 Diagnosis - Coronavirus infection, unspecified ms3 - rhinorrhea ms3 - myalgias ms3 Followup: ms3 - With: Luis Alfredo Allen MD - When: 2 - 3 days - Reason: Re-evaluation by your physician Discharge Instructions: - Discharge Summary Sheet ms3 - COVID-19 ms3 - COVID-19 Frequently Asked Questions ms3 - 10 Things You Can Do to Manage Your COVID-19 Symptoms at Home - [facility] [place] ms3 Forms: - Medication Reconciliation Form ms3 - Thank You Letter ms3 - Antibiotic Education ms3 - Prescription Opioid Use ms3 Signatures: Dispatcher [employer] Praful Escalera RN RN jl7 Darrick Lee, DO ms3
[2021-10-26 11:20] VITALS: BP 152/70; TEMP 97.9; O2SAT 99
== END 2021-10-26 11:10 | disposition home or self-care (01) ==
LOC: ER 07:44
DX: U07.1 COVID-19 (principal); M79.10 Myalgia, unspecified site; J34.89 Other specified disorders of nose and nasal sinuses; E11.9 Type 2 diabetes mellitus without complications; I10 Essential (primary) hypertension; Z88.5 Allergy status to narcotic agent; Z88.6 Allergy status to analgesic agent; Z88.8 Allergy status to other drugs, medicaments and biological substances
CPT/HCPCS: U0003

== ENCOUNTER 2022-10-02 08:08 | Emergency (ER) | payer OTHER ==
--- OUTSIDE RECORDS SUMMARY | 2022-10-02 08:11 | XMS REPORT | Continuity of Care Document ---
:[address] [facility] t Address [address] [facility] [address] [place] [address] Care Team Providers Name Role Phone PCP, PATIENT DOES NOT HAVE A Primary Care Physician Unavaila ble [id number] Attending Clinician Unavailable YOVANI BRYSON Attending Clinician Unavailable Yovani Bryson MD Attending Clinician Doctor Unassigned, [place] Attending Clinician Unavailable AMBER JAIMES Attending Clinician Unavailable Amber Duval Attending Clinician Triston Jaimes Attending Clinician Tucker Fuentes CRNA Attending Clinician Marianne Post MD Attending Clinician Pob, Adc Lab Main Attending Clinician Unavailable Only, Adc Test Attending Clinician Unavailable Dianna Del Cid PT Attending Clinician Unavailable VESTA, ELIZABETH Attending Clinician Unavailable [id number] Admitting Clinician Unavailable YOVANI BRYSON Admitting Clinician Unavailable Yovani Bryson MD Admitting Clinician Payers Payer Name Policy Type Policy Number Effective Date Expiration Date Susan spencer KARIE/[facility] DUAL [id number] 2020 COMP HMO D SNP 00:00:00 MEDICAID [facility] [id number] 2020 00:00:00 [facility] STAR [id number] 2020 PLUS 00:00:00 Problems Condition Condition Condition Status Onset Resolution Last Treating Co mments Source Name Details Category Date Date Treatment Clinician Date Primary Primary Disease Active Overview: Univ ers osteoarthr osteoarthr 7-13 Formattin ity of itis of itis of 00:00: g of this [place] left hip left hip 00 note Medica l might be Branch different from the original. 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 00:00: [facility] Right Eye Right Eye 00 l Allergies, Adverse Reactions, Alerts Allergy Allergy Status Severity Reaction(s) Onset Inactive Treating Comm ents Source Name Type Date Date Clinician NO KNOWN Drug Active Univers ALLERGIE Class ity of S [facility] Family History Family Member Diagnosis Comments Start Date Stop Date Source Natural brother [facility] mother COPD [facility] mother Heart disease [facility] Natural mother Stroke [facility] Natural sister Diabetes [facility] son [facility] son Heart disease [facility] Social History Social Habit Start Date Stop Date Quantity Comments Source Gender identity [facility] Sexual orientation [facility] Exposure to 2021-09-23 2021-10-03 Not sure [facility] SARS-CoV-2 (event) 00:00:00 15:55:00 [facility] Tobacco use and 2020-06-28 2020-06-28 Never used Universit y of exposure 00:00:00 00:00:00 [facility] History of Social 2016-10-20 2016-10-[address] function 00:00:00 00:00:00 Hospital Alcohol intake 2016-05-31 2016-05-31 Current drinker Metho dist 00:00:00 00:00:00 of [facility] (finding) Alcohol Comment 2016-02-21 2016-02-21 occasional Rastafarian 00:00:00 00:00:00 Hospital Sex Assigned At [birth year] Rast[facility]arian 00:00:00 00:00:00 Hospital Smoking Status Start Date Stop Date Source Never smoker [facility] Medications Ordered Filled Start Stop Current Ordering Indication Dosage Frequency Signature Comments Components Source Medication Medication Date Date Medication? Clinician (SIG) Name Name sodium 2020- No [id number] 30mg Uni vers hyaluronate -08 9109 ity of (viscosup) 14:15: 13:08 [place] (ORTHOVISC) 00 :00 Medical injection Branch 30 mg sodium 2020- No [id number] 30mg 30 mg, U nivers hyaluronate 10-08 Intra-faizan i ty of (viscosup) 14:15: 13:08 Donna brantley ([facility]) 00 :00 ONCE, 1 Medic al injection dose, On Branch 30 mg 10/08/21 at 0915, Routine sodium 2020-04- No [id number] 30mg Uni vers hyaluronate 0-08 01-2709 ity of (viscosup) 14:15: 02:14 [place] ([facility]) 00 :00 Medical injection Branch [address] Unive rs min 1,000 7-23 under the ity o f mcg 15:43: tongue. [place] sublingual 54 Medical tablet Branch montelukast Yes 10mg Take 10 mg Univers sodium 7-23 by mouth ity of (MONTEL[place]AS 15:43: daily. [place] ORAL) 54 Medical Branch lifitegrast Yes 1[drp] Place 1 U nivers 5 % Dpet 7-23 Drop in ity of 15:43: right eye [place] 54 2 (two) Medical times Branch daily. omeprazole Yes 40mg Take 40 mg U nivers 40 mg 7-23 by mouth ity of capsule 15:43: daily. [place] [address] Medical Branch HYDROcodone Yes 1{tbl} Take 1 [...] Branch drops daily. tacrolimus Yes Apply to Uni vers 0.1 % 7-23 area(s) at ity of ointment 15:43: bedtime. [place] 54 Right Eye Medical Branch loteprednol Yes Place in Un flavio etabonate 7-23 right eye ity o f (LOTEMAX) 15:43: at [place] 0.5 % 54 bedtime. Medical ointment Branch cholecalcif Yes 1000U Take 1,000 Univers natalia, 7-23 Units by ity of vitamin D3, 15:43: mouth [place] (VITAMIN 54 daily. Medical D3) 25 mcg Branch (1,000 unit) tablet BETA Yes 1{tbl} Take 1 Univers CAROTENE 7-23 tablet by ity of ORAL 15:43: mouth. [place] 54 Medical Branch levothyroxi Yes 75ug Take [...] 00:00: [place] mcg/actuati 00 Medical on inhaler Branch lisinopril Yes 20mg QD Take 20 mg M ethodi (PRINIVIL,Z 2-[address] ESTRIL) 20 14:43: every Hospit a MG tablet 40 morning. l levothyroxi Yes 100ug QD Take 100 M ethodi ne 2-[address] (SYNTHROID, 14:43: mouth Hospi ta LEVOTHROID) 40 every l 100 MCG morning. tablet metFORMIN Yes 1000mg Q.5D Take 1,000 Methodi (GLUCOPHAGE 2-[address] ) 1000 MG 14:43: mouth 2 Hospi ta tablet 40 (two) l times a day. cyanocobala 2017-[address] Metho di min, 2-[address] vitamin 14:43: tongue Hospita B-12, 40 daily. l (VITAMIN B-12) 1,000 mcg tablet, sublingual CALCIUM 2017-0 Yes Q.5D Take by Methodi CARBONATE/V 2-[address] ITAMIN D3 14:43: (two) Hospita (CALCIUM 40 times a l 600 + D,3, day. ORAL) MONTELUKAST 2017-0 Yes QD Take by Met hodi SODIUM 2-[address] (SINGULAIR 14:43: every Hospit a ORAL) 40 morning. l loteprednol 2017-0 Yes 1[drp] Q.5D Administer Methodi (LOTEMAX) 2-[address] 0.5 % 14:43: the right Hospita ophthalmic 40 eye 2 l suspension (two) times a day. latanoprost 2016-0 Yes 1[drp] QD Administer Methodi (XALATAN) 2-[address] 0.005 % 14:43: into the Hospit a ophthalmic 40 left eye l solution nightly. brimonidine 2017-0 Yes 1[drp] Q12H Administer Methodi -timolol 2-[address] (COMBIGAN) 14:43: into the Hos vicenta 0.2-0.5 % 40 left eye l ophthalmic every 12 solution (twelve) hours. LIFITEGRAST 2017-0 Yes Q.5D Apply to [facility] (XIIDRA 2-[address] OPHT) 14:43: (two) Hospita 40 times a l day. Vital Signs Vital Name Observation Time Observation Value Comments Source Systolic blood 2021-01-26 13:06:00 132 mm[Hg] [facility] Diastolic blood 2021-01-26 13:06:00 79 mm[facility]Hg] [facility] Heart rate 2021-01-26 13:06:00 63 /min [facility] Body height 2021-01-26 13:06:00 144.8 cm [facility] Body weight 2021-01-26 13:06:00 73.936 kg [facility] BMI 2021-01-26 13:06:00 35.27 kg/m2 [facility] Systolic blood 2021-01-26 13:06:00 132 mm[Hg] Univer sity [facility] Diastolic blood 2021-01-26 13:06:00 79 mm[Hg] Unive rshansel [facility] Heart rate 2021-01-26 13:06:00 63 /min [facility] Body height 2021-01-26 13:06:00 144.8 cm [facility] Body weight 2021-01-26 13:06:00 73.936 kg [facility] BMI 2021-01-26 13:06:00 35.27 kg/m2 [facility] Procedures This patient has no known procedures. Plan of Care Planned Activity Planned Date Details Comments Source Future Scheduled 2022-09-26 Screening for [facility] Test 11:40:26 malignant neoplasm of colon (procedure) [code = 505887484] Future Scheduled 2022-09-26 Screening for [facility] Test 11:40:26 malignant neoplasm of colon (procedure) [code = 353286898] Future Scheduled 2022-09-26 Screening for [facility] Test 11:40:26 malignant neoplasm of colon (procedure) [code = 099482865] Future Scheduled 2022-09-26 COVID-19 VACCINE (#1) [facility] Test 11:40:26 [code = COVID-19 VACCINE (#1)] Future Scheduled 2022-09-26 BREAST CANCER [facility] Test 11:40:26 SCREENING [code = BREAST CANCER SCREENING] Future Scheduled 2022-09-26 Screening for [facility] Test 11:40:26 malignant neoplasm of colon (procedure) [code = 012854941] Future Scheduled 2022-09-26 Screening for [facility] Test 11:40:26 malignant neoplasm of colon (procedure) [code = 208988329] Future Scheduled 2022-09-26 SHINGLES VACCINES (1 Met [facility] Test 11:40:26 of 2) [code = SHINGLES VACCINES (1 of 2)] Future Scheduled 2022-09-26 65+ PNEUMOCOCCAL [facility] Test 11:40:26 VACCINE (1 - PCV) [code = 65+ PNEUMOCOCCAL VACCINE (1 - PCV)] Future Scheduled 2022-09-26 INFLUENZA VACCINE [facility] Test 11:40:26 [code = INFLUENZA VACCINE] Encounters Start End Encounter Admission Attending Care Care Encounter Source Date/Time Date/Time Type Type Clinicians Facility Department ID 2021-05-17 Outpatient 3 [id number] [facility] ORJ [facility] 12:32:59 [facility] [place] 2021-05-17 Outpatient 3 [id number] [facility] REF [id number] [facility] 12:32:36 [facility] [place] 2021-02-19 [facility] [id number] Univers 07:48:02 [facility] 2021-10-03 2021-10-03 [facility] [id number] Univers 16:15:00 16:52:31 [facility] 2021-10-03 2021-10-03 [facility] [id number] Univers 16:15:00 16:52:31 Visit [facility] [id number] it y of [place] 4.2.7.2.686 Travon as TRISTIN?BLEA [phone] [address] MEDICAL OFFICE [facility] 2021-10-03 2021-10-03 [facility] [id number] Univers 16:15:00 16:52:31 [facility] 2021-10-03 2021-10-03 Orders Doctor TAMRA [id number] [id number] Univers 00:00:00 00:00:00 Only Unassigned, MELY 350.1.13.10 ity of [place] [facility] 4.2.7.2.686 Travon as [phone] [address] 2021-02-07 2021-02-07 [facility] [id number] Univers 15:00:00 15:21:33 [facility] 2021-02-07 2021-02-07 [facility] [id number] Univers 14:41:51 15:21:33 Visit [facility] 350.1.13.10 it y of [place] 4.2.7.2.686 Travon as TRISTIN?BLEA [phone] Id marciano SANCHEZ 198 [facility] 2021-02-07 2021-02-07 Outpatient [facility] [id number] Univers 15:00:00 15:00:00 YOVANIHUGO hamm [facility] 2021-02-02 2021-02-02 Outpatient [facility] [id number] Univers 10:30:00 10:30:00 [facility] 2021-01-26 2021-01-26 [facility]patient [facility] [id number] Univers 08:00:00 08:24:00 [facility] 2021-01-26 2021-01-26 [facility] 1.2.840.114 [id number] Univers 08:00:00 08:24:00 Visit [facility] 350.1.13.10 it y of [place] 4.2.7.2.686 Travon as TRISTIN?BLEA [phone] Id marciano SANCHEZ [address] [place] [address] 2021-01-26 2021-01-26 Office [facility] 1.2.840.114 [id number] Univers 08:00:00 08:24:00 Visit [facility] 350.1.13.10 it y of [place] 4.2.7.2.686 Travon as TRISTIN?BLEA [phone] Id marciano SANCHEZ [address] [place] [address] 2021-01-26 2021-01-26 [facility] [id number] Univers 08:00:00 08:24:00 [facility] 2021-01-26 2021-01-26 Out[facility] [id number] Univers 08:00:00 08:00:00 [facility] 2021-01-19 2021-01-19 Outpatient [facility] [id number] Univers 08:30:00 08:30:00 AMBER ity [facility] 2021-01-19 2021-01-19 [facility] 1.2.840.114 [id number] Univers 08:30:00 08:30:00 Visit Amber S HEALTH 350.1.13.10 it y of [place] 4.2.7.2.686 Travon as TRISTIN?BLEA [id number] Id marciano SANCHEZ [address] [place] [address] OFFICE [facility] 2021-01-19 2021-01-19 [facility] 1.2.840.114 [id number] Univers 08:30:00 08:30:00 Visit Amber S HEALTH 350.1.13.10 it y of [place] 4.2.7.2.686 Travon as TRISTIN?BLEA [id number] Id marciano [address] 2021-01-19 2021-01-19 [facility]patient [facility] [id number] Univers 08:30:00 08:22:08 AMBER ity [facility] 2021-01-19 2021-01-19 Outpatient [facility] [id number] Univers 08:30:00 08:22:08 MABER ity [facility] 2021-01-16 2021-01-16 Outpatient [facility] [id number] Univers 08:45:00 08:45:00 AMBER y [facility] 2021-01-09 2021-01-09 Outpatient [facility] [id number] Univers 08:30:00 08:49:01 AMBER ity [facility] 2021-01-09 2021-01-09 [facility] 1.2.840.114 [id number] Univers 08:30:00 08:49:01 Visit Abmer S HEALTH 350.1.13.10 it y of [place] 4.2.7.2.686 Travon as TRISTIN?BLEA [id number] Id marciano SANCHEZ [address] [place] [address] 2021-01-09 2021-01-09 Outpatient [facility] [id number] Univers 08:30:00 08:49:01 AMBER ity [facility] 2021-01-09 2021-01-09 [facility] 1.2.840.114 [id number] Univers 08:04:37 08:49:01 Visit [facility] 350.1.13.10 it y of [place] 4.2.7.2.686 Travon as Tristin?Blea [phone] Id marciano sanchez [address] [facility] Office [facility] 2021-01-09 2021-01-09 Outpatient [facility] [id number] Univers 08:30:00 08:30:00 [facility] 2021-01-03 2021-01-03 Orders Doctor TAMRA 1.2.840.114 [id number] Univers 00:00:00 00:00:00 Only Unassigned, MELY 350.1.13.10 ity of [place] [facility] 4.2.7.2.686 Travon as [phone] [address] 2021-01-01 2021-01-01 Telephone [facility] 1.2.840.114 [id number] Univers 00:00:00 00:00:00 [facility] 350.1.13.10 it y of [place] 4.2.7.2.686 Travon as Tristin?Blea [id number] Id marciano sanchez [address] [place] [address] Office [facility] 2020-12-27 2020-12-27 Office [facility] 1.2.840.114 [id number] Univers 12:49:24 13:39:55 Visit [facility] 350.1.13.10 it y of [place] 4.2.7.2.686 Travon as Tristin?Blea [phone] Id marciano sanchez [address] [place] [address] Office [facility] 2020-12-27 2020-12-27 Outpatient [facility] [id number] Univers 13:00:00 13:00:00 [facility] 2020-12-26 2020-12-26 Outpatient [facility] [id number] Univers 13:15:00 13:15:00 [facility] 2020-12-14 2020-12-14 [facility] 1.2.840.114 [id number] Univers 00:00:00 00:00:00 Amber S Health 350.1.13.10 it y of [place] 4.2.7.2.686 Travon as Tristin?Blea [phone] Id dical kney [address] [facility] Office [facility] 2020-11-28 2020-11-28 [facility] 1.2.840.114 [id number] Univers 11:38:39 23:59:00 Encounter Yovani Enriqueton 350.1.13.10 ity of [place].2.[place] [phone] [facility] [address] 2020-11-28 2020-11-28 Office [facility] 1.2.840.114 [id number] Univers 14:16:10 14:51:44 Visit [facility] 350.1.13.10 it y of Surgical 4.2.7.2.686 [place] as Specialti [phone] Id dical es 198 [facility] 2020-11-28 2020-11-28 Outpatient R [facility] [id number] Univers 14:45:00 14:45:00 AMBER ity [facility] 2020-11-27 2020-11-27 Telephone [facility] 1.2.840.114 [id number] Univers 00:00:00 00:00:00 Yovani [facility] 350.1.13.10 it y of Surgical 4.2.7.2.686 [place]on as Specialti [id number] Id dical es 198 [facility] 2020-11-06 2020-11-10 [facility] 1.2.840.114 [id number] Univers 07:41:00 15:43:00 Encounter Yovani Enriqueton 350.1.13.10 ity of [place] 4[place].7.2.[place] [id number] [facility] [address] 2020-11-10 2020-11-[address] [facility] 1.2.840.114 [id number] Univers 00:00:00 00:00:00 [place] 350.1.13.10 i ty of [place].2.[place] [id number] Id dical nal 198 [address] [facility] 2020-11-07 2020-11-07 Outpatient R [facility] [id number] Univers 14:00:00 14:00:00 YOVANI ity of [facility] 2020-11-06 2020-11-[address] [facility] [id number] Univers 09:25:00 12:11:00 Yovani La 350.1.13.10 i ty of [place] 4.2.7.2.[place] [id number] [facility] [address] 2020-11-06 2020-11-[address] 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 1.2.8 40.114 [id number] Univers 11:26:01 11:41:01 Visit Yovani Bryson 350.1.13.10 ity of [place] 4.2.7.2.[place] [phone] Id dical nal 353 [facility] 2020-11-03 2020-11-03 Laboratory Only, Adc Test [facility] 1.2.840. 114 [id number] Univers 11:25:08 11:40:08 Only Yovani Bryson 350.1.13.10 ity of [place] 4.2.7.2.[place] [phone] [facility] [address] 2020-11-03 2020-11-[address] [facility] 1.2.840.114 [id number] Univers 11:29:30 11:29:30 Encounter Yovani La 350.1.13.10 ity of [place] 4.2.7.2.[place] [id number] [facility] [address] 2020-11-03 2020-11-03 [facility] [id number] Univers 11:00:00 11:00:00 YOVANI hamm [facility] 2020-10-31 2020-10-[address] Del C[address] [facility] 1 .2.840.114 [id number] Univers 14:40:12 16:02:10 Visit Yovani Bryson 350.1.13.10 ity of [place] 4.2.7.2.686 [facility] [phone] Me dical nal 179 [facility] 2020-10-31 2020-10-31 Outpatient [facility] [id number] Univers 14:00:00 14:00:00 YOVANI hamm [facility] 2020-10-27 2020-10-27 [facility] 1.2.840.114 [id number] Univers 00:00:00 00:00:00 Surgery Yovani Barrios 350.1.13.10 it y of Surgical 4.2.7.2.686 [place]on as Specialti [phone] Me dical es 198 [facility] 2020-10-25 2020-10-25 [facility] 1.2.840.114 [id number] Univers 14:45:04 23:59:00 Encounter Yovani Barrios 350.1.13.10 ity of Surgical 4.2.7.2.686 [place]on as Specialti [id number] Me dical es 809 [facility] 2020-10-25 2020-10-25 Office [facility] 1.2.576.606 [id number] Univers 14:25:03 15:29:32 Visit Yovani Barrios 350.1.13.10 it y of Surgical 4.2.7.2.686 [place]on as Specialti [phone] Me dical es 198 [facility] 2020-10-25 2020-10-25 Outpatient R [facility] [id number] Univers 14:45:00 14:45:00 YOVANI hamm [facility] 2020-10-19 2020-10-[address] 1.2.840.114 [id number] Univers 00:00:00 00:00:00 Yovani [facility] 350.1.13.10 it y of Surgical 4.2.7.2.686 [place]on as Specialti [phone] Me dical es 198 [facility] 2020-10-13 2020-10-13 Orders Doctor TAMRA 1.2.840.114 [id number] Univers 00:00:00 00:00:00 Only Unassigned, MELY 350.1.13.10 ity of [place] [facility] 4.2.7.2.686 Travon as [phone] [address] 2020-10-04 2020-10-04 Orders Doctor TAMRA 1.2.840.114 [id number] Univers 00:00:00 00:00:00 Only Unassigned, MELY 350.1.13.10 ity of [place] [facility] 4.2.7.2.686 Travon as [id number] [address] 2020-06-28 2020-06-28 Outpatient [facility] [id number] Univers 13:24:37 23:59:00 YOVANI hamm [facility] 2020-06-28 2020-06-28 [facility] 1.2.840.114 [id number] Univers 13:24:37 23:59:00 Encounter Yovani Barrios 350.1.13.10 ity of Surgical 4.2.7.2.686 [place]on as Specialti [phone] Me dical es 809 [facility] 2020-06-28 2020-06-28 Office [facility] 1.2.018.489 [id number] Univers 12:54:41 14:39:32 Visit Yovani Barrios 350.1.13.10 it y of Surgical 4.2.7.2.686 [place]on as Specialti [phone] Me dical es 198 [facility] 2020-06-28 2020-06-[address] [facility] 1.2.056.256 [id number] 12:54:41 14:39:[address] [facility] 350.1.13.10 Surgical 4.2.7.2.686 [facility] [id number] es 198 Abhinav 2020-06-28 2020-06-28 Outpatient R [facility] [id number] Univers 13:30:00 13:30:00 YOVANI hamm [facility] 2019-09-21 2019-09-21 Outpatient VESTA, [facility] [id number] [place] 00:00:00 00:00:[address] Results This patient has no known results.
--- NOTE | 2022-10-02 08:30 | EDPHYS ---
Physician Documentation [facility] Name: Amarilys Roberto Age: 72 yrs Sex: Female : 1950 Arrival Date: 10/02/2022 Time: 08:08 Bed 5 Private MD: ED Physician Karthikeyan Mccormack HPI: 10/02 08:20 This 72 yrs old Black Female presents to ER via Unassigned with complaints of left knee snw and right shoulder. 08:19 The patient presents with pain, that is chronic. The complaints affect the right snw shoulder and left knee. Context: The problem was sustained at home, resulted from a chronic condition, degenerative joint disease, the patient can fully bear weight, uses a walker. Onset: The symptoms/episode began/occurred acutely. Modifying factors: The symptoms are alleviated by nothing. Associated signs and symptoms: The patient has no apparent associated signs or symptoms. 08:20 Severity of symptoms: At their worst the symptoms were moderate. The patient has snw experienced similar episodes in the past, chronically. pt recently had eye surgery on 09/24/22. Using drops. Allergic to tylenol.. Historical: - Allergies: 08:20 ACETAMINOPHEN; ll1 08:20 Percodan; ll1 08:20 Propoxyphene; ll1 08:20 tramadol; ll1 - PMHx: 08:20 diverticulosis; Hypertension; Diabetes - NIDDM; Hypothyroidism; ll1 - PSHx: 08:20 eye SX; ll1 - Immunization history:: Adult Immunizations up to date, Client reports receiving the 2nd dose of the Covid vaccine. - Social history:: Smoking status: Patient denies any tobacco usage or history of. ROS: 08:24 Constitutional: Negative for fever, chills, and weight loss. snw 08:24 ENT: Negative for injury, pain, and discharge, Neck: Negative for injury, pain, and swelling, Cardiovascular: Negative for chest pain, palpitations, and edema, Respiratory: Negative for shortness of breath, cough, wheezing, and pleuritic chest pain, Abdomen/GI: Negative for abdominal pain, nausea, vomiting, diarrhea, and constipation, : Negative for injury, bleeding, discharge, and swelling, MS/Extremity: Negative for injury and deformity, Skin: Negative for injury, rash, and discoloration, Neuro: Negative for headache, weakness, numbness, tingling, and seizure, Psych: Negative for depression, anxiety, suicide ideation, homicidal ideation, and hallucinations. 08:24 Eyes: Positive for recent surgery. 08:24 Back: Positive for pain at rest, pain with movement, of the left knee and right shoulder. Exam: 08:26 Constitutional: This is a well developed, well nourished patient who is awake, alert, snw and in no acute distress. Head/Face: Normocephalic, atraumatic. ENT: Nares patent. No nasal discharge, no septal abnormalities noted. Tympanic membranes are normal and external auditory canals are clear. Oropharynx with no redness, swelling, or masses, exudates, or evidence of obstruction, uvula midline. Mucous membranes moist. Neck: Trachea midline, no thyromegaly or masses palpated, and no cervical lymphadenopathy. Supple, full range of motion without nuchal rigidity, or vertebral point tenderness. No Meningismus. Chest/axilla: Normal chest wall appearance and motion. Nontender with no deformity. No lesions are appreciated. 08:26 Respiratory: Lungs have equal breath sounds bilaterally, clear to auscultation and percussion. No rales, rhonchi or wheezes noted. No increased work of breathing, no retractions or nasal flaring. Abdomen/GI: Soft, non-tender, with normal bowel sounds. No distension or tympany. No guarding or rebound. No evidence of tenderness throughout. Back: No spinal tenderness. No costovertebral tenderness. Full range of motion. Skin: Warm, dry with normal turgor. Normal color with no rashes, no lesions, and no evidence of cellulitis. Neuro: Awake and alert, GCS 15, oriented to person, place, time, and situation. Cranial nerves II-XII grossly intact. Motor strength 5/5 in all extremities. Sensory grossly intact. Cerebellar exam normal. Normal gait. Psych: Awake, alert, with orientation to person, place and time. Behavior, mood, and affect are within normal limits. 08:26 Eyes: Periorbital structures: appear normal, Pupils: pt has prosthesis for left eye, right eye injected post surgery.. 08:26 Cardiovascular: Rate: normal, Rhythm: regular, Heart sounds: murmur, systolic, grade 3 over 6, Edema: is not appreciated. 08:26 Musculoskeletal/extremity: Extremities: grossly normal except: ROM: limited active range of motion due to pain, left knee and right shoulder, Circulation is intact in all extremities. Sensation intact. Vital Signs: 08:27 BP 148 / 81; Pulse 70; Resp 16; Temp 98.6; Pulse Ox 97% on R/A; Weight 78.02 kg; Height ll1 4 ft. 9 in. ; Pain 8/10; 08:54 BP 129 / 71; Pulse 61; Resp 16; Pulse Ox 100% ; bp 08:27 Body Mass Index 37.22 (78.02 kg, 144.78 cm) ll1 08:27 Pain Scale: Adult ll1 Procedures: 09:28 I \\T\\ D: Incision and drainage was performed for an abscess of the right axilla. Prepped snw with hibiclens. Anesthetized with nothing. Incised with 18g needle. Drained small amount balls of hair the patient tolerated the procedure well. MDM: 08:12 Patient medically screened. snw 08:21 ED course: Pt had eye surgery on the 6th of this month. Allergic to tylenol. Unclear if snw steroids for arthritic pain contraindicated 2nd to surgical procedure. Pt had previously taken a baby asa daily but stop for the surgery. "haven't taken it up again". Pt agrees to have full dose asa here in ED and will return to baby asa schedule tomorrow. Recommend f/u with Opthalmologist as soon as possible. 08:27 Differential diagnosis: contusion, abrasion, tendonitis, arthritis. Data reviewed: snw vital signs, nurses notes. I considered the following discharge prescriptions or medication management in the emergency department Medications were administered in the Emergency Department. See MAR. Counseling: I had a detailed discussion with the patient and/or guardian regarding: the historical points, exam findings, and any diagnostic results supporting the discharge/admit diagnosis, the need for outpatient follow up, for definitive care, to return to the emergency department if symptoms worsen or persist or if there are any questions or concerns that arise at home. Special discussion: Based on the history and exam findings, there is no indication for further emergent testing or inpatient evaluation. I discussed with the patient/guardian the need to see the opthamologist for further evaluation of the symptoms, I discussed with the patient/guardian the need to see the primary care provider for further evaluation of the symptoms. Administered Medications: 08:30 Drug: Aspirin PO Chewable Tablet 324 mg Route: PO; bp 08:49 Follow up: Response: No adverse reaction bp 09:27 Drug: Amoxicillin-Clavulanate PO 875 mg Route: PO; bp 09:28 Follow up: Response: No adverse reaction bp Disposition Summary: 10/02/22 08:29 Discharge Ordered Location: Home snw Condition: Stable snw Diagnosis - Unspecified osteoarthritis, unspecified site - left knee, right shoulder snw Followup: snw - With: Emergency Department - When: As needed - Reason: Worsening of condition Followup: snw - With: Private Physician - When: 2 - 3 days - Reason: Recheck today's complaints, Continuance of care, Re-evaluation by your physician Discharge Instructions: - Discharge Summary Sheet snw - Skin Abscess snw - Arthritis snw - Osteoarthritis snw - Aspirin and Your Heart snw Forms: - Medication Reconciliation Form snw - Thank You Letter snw - Antibiotic Education snw - Prescription Opioid Use snw Prescriptions: - Augmentin 875-125 mg Oral Tablet - take 1 tablet by ORAL route every 12 hours for 10 days; 20 tablet; Refills: 0, snw Product Selection Permitted Signatures: Teagan Jernigan, BENJAMIN-C STRINGS TEACHER-Cs[employer] Chemo James, RN RN bp Mabel Jeffries RN RN ll1
--- NOTE | 2022-10-02 08:30 | ER ---
Nurse's Notes [facility] Name: Amarilys Roberto Age: 72 yrs Sex: Female : 1950 Arrival Date: 10/02/2022 Time: 08:08 Bed 5 Private MD: Diagnosis: Unspecified osteoarthritis, unspecified site-left knee, right shoulder Presentation: 10/02 08:20 Method Of Arrival: Ambulatory 1 08:27 Chief complaint: Patient states: L knee and R shoulder pain kept her up all night. ll1 Coronavirus screen: Vaccine status: Patient reports receiving the 2nd dose of the covid vaccine. Client denies travel out of the [place] in the last 14 days. At this time, the client does not indicate any symptoms associated with coronavirus-19. Ebola Screen: Patient denies travel to an Ebola-affected area in the 21 days before illness onset. Initial Sepsis Screen: Does the patient meet any 2 criteria? No. Patient's initial sepsis screen is negative. Does the patient have a suspected source of infection? Yes: Bone or joint infection. Risk Assessment: Do you want to hurt yourself or someone else? Patient reports no desire to harm self or others. Onset of symptoms was October 01, 2022. 08:27 Acuity: DUNCAN 4 ll1 Triage Assessment: 08:20 Headache History: The patient has had previous headaches and this one is similar to bp previous episodes. General: Appears in no apparent distress. Behavior is appropriate for age. Pain: Complains of pain in head and right knee Pain currently is 4 out of 10 on a pain scale. Pain began years ago. Also complains of no other associated symptoms. EENT: No deficits noted. Neuro: Reports headache. Cardiovascular: No deficits noted. Respiratory: No deficits noted. GI: No signs and/or symptoms were reported involving the gastrointestinal system. : No signs and/or symptoms were reported regarding the genitourinary system. Derm: No deficits noted. Musculoskeletal: No deficits noted. Historical: - Allergies: 08:20 ACETAMINOPHEN; ll1 08:20 Percodan; ll1 08:20 Propoxyphene; ll1 08:20 tramadol; ll1 - PMHx: 08:20 diverticulosis; Hypertension; Diabetes - NIDDM; Hypothyroidism; ll1 - PSHx: 08:20 eye SX; ll1 - Immunization history:: Adult Immunizations up to date, Client reports receiving the 2nd dose of the Covid vaccine. - Social history:: Smoking status: Patient denies any tobacco usage or history of. Screenin:52 [facility] ED Fall Risk Assessment (Adult) History of falling in the last 3 months, bp including since admission No falls in past 3 months (0 pts). Abuse screen: Denies threats or abuse. Denies injuries from another. Nutritional screening: No deficits noted. Tuberculosis screening: No symptoms or risk factors identified. Assessment: 08:20 General: SEE TRIAGE NOTE. bp 08:54 Reassessment: Patient appears in no apparent distress at this time. Patient is alert, bp oriented x 3, equal unlabored respirations, skin warm/dry/pink. 09:05 Reassessment: DC ON HOLD FOR TRANSPORT. bp 09:27 Reassessment: FAMILY CONTACTED, TRANSPORT EN ROUTE. bp 10:45 Reassessment: EMS AT B/S FOR TRANSPORT HOME. bp Vital Signs: 08:27 BP 148 / 81; Pulse 70; Resp 16; Temp 98.6; Pulse Ox 97% on R/A; Weight 78.02 kg; Height ll1 4 ft. 9 in. ; Pain 8/10; 08:54 BP 129 / 71; Pulse 61; Resp 16; Pulse Ox 100% ; bp 08:27 Body Mass Index 37.22 (78.02 kg, 144.78 cm) ll1 08:27 Pain Scale: Adult ll1 ED Course: 08:10 Patient arrived in ED. mr 08:11 Teagan [facility]renigan [facility]C [facility]. snw 08:12 Karthikeyan Mccormack MD is Attending Physician. snw 08:17 Chemo James, SCARLET is Primary Nurse. bp 08:20 Arm band placed on Patient placed in an exam room, on a stretcher. ll1 08:28 Triage completed. ll1 08:52 Patient has correct armband on for positive identification. Bed in low position. Call bp light in reach. Side rails up X2. 09:05 No provider procedures requiring assistance completed. Patient did not have IV access bp during this emergency room visit. Administered Medications: 08:30 Drug: Aspirin PO Chewable Tablet 324 mg Route: PO; bp 08:49 Follow up: Response: No adverse reaction bp 09:27 Drug: Amoxicillin-Clavulanate PO 875 mg Route: PO; bp 09:28 Follow up: Response: No adverse reaction bp Outcome: 08:29 Discharge ordered by MD. lopez 10:45 Discharged to home via ambulance. bp 10:45 Condition: stable 10:45 Discharge instructions given to patient, Instructed on discharge instructions, follow up and referral plans. medication usage, Demonstrated understanding of instructions, follow-up care, medications, Prescriptions given X 1. 10:46 Patient left the ED. bp Signatures: Teagan Jernigan FNP-C SUPERVISOR [employer]ATING-[employer]w Isabela Wyman Brian, RN RN bp Mabel Jeffries RN RN ll1
[2022-10-02] MEDS ORDERED: ASPIRIN 81 MG CHEWABLE TABLET ONE (08:51)
[2022-10-02] MEDS ORDERED: AMOX/K CLAV 875 MG TAB ONE (09:33)
[2022-10-02 10:51] VITALS: TEMP 98.6
[2022-10-02 10:52] VITALS: BP 129/71; O2SAT 100
== END 2022-10-02 10:46 | disposition home or self-care (01) ==
LOC: ER 08:08
PROC: 0H9BXZZ Drainage of Right Upper Arm Skin, External Approach (ICD-10-PCS; principal; 2022-10-02)
DX: M17.12 Unilateral primary osteoarthritis, left knee (principal); M19.011 Primary osteoarthritis, right shoulder; Z88.5 Allergy status to narcotic agent; Z88.6 Allergy status to analgesic agent
CPT/HCPCS: 99283

== ENCOUNTER 2024-01-22 11:50 | Emergency (ER) | payer OTHER ==
[2024-01-22] MEDS ORDERED: HYDROCODONE/APAP 5/325 MG TAB ONE (13:09)
--- NOTE | 2024-01-22 14:13 | RAD REPORT ---
EXAMINATION: XR HIP CLINICAL INDICATION: Female, 73 years old. PAIN RIGHT TECHNIQUE: 2 view radiograph of the right hip were obtained. [id number]. COMPARISON: No prior exam. FINDINGS: Right total hip arthroplasty is noted. Hardware loosening seen. Prominent heterotopic bone projects superior to the right greater trochanter. No acute fracture seen.
--- NOTE | 2024-01-22 14:38 | EDPHYS ---
Physician Documentation [facility] Name: Amarilys Roberto Age: 73 yrs Sex: Female : 1950 Arrival Date: 01/22/2024 Time: 11:50 Bed 9 Private MD: ED Physician Darrick Lee HPI: 01/21 13:30 This 73 yrs old Black Female presents to ER via EMS with complaints of Hip Pain. ms3 13:30 73-year-old female with past medical history of diabetes, diverticulosis, hypertension, ms3 hypothyroidism, visual impairment presents to the emergency department for right hip pain after twisting her leg 1 week ago. Patient states pain is worse with bending down. Patient rates her discomfort an 8/10. She denies fevers or chills.. Historical: - Allergies: 12:20 ACETAMINOPHEN; ll1 12:20 Percodan; ll1 12:20 Propoxyphene; ll1 12:20 tramadol; ll1 - PMHx: 12:20 Diabetes - NIDDM; diverticulosis; Hypertension; Hypothyroidism; ll1 - PSHx: 12:20 eye sx; ll1 - Immunization history:: Adult Immunizations up to date. - Infectious Disease History:: Denies. - Social history:: Smoking status: Patient denies any tobacco usage or history of. ROS: 13:30 Constitutional: Negative for fever, and chills. Cardiovascular: Negative for chest ms3 pain, and palpitations. Respiratory: Negative for shortness of breath, cough, wheezing, and pleuritic chest pain, Abdomen/GI: Negative for abdominal pain, nausea, vomiting, diarrhea, and constipation, 13:30 MS/extremity: Positive for pain, Right hip, Exam: 13:30 Constitutional: This is a well developed, well nourished patient who is awake, alert, ms3 and in no acute distress. Chest/axilla: Normal chest wall appearance and motion. Nontender with no deformity. Cardiovascular: Regular rate and rhythm with a normal S1 and S2. No gallops, murmurs, or rubs. Normal PMI, no JVD. No pulse deficits. Respiratory: Lungs have equal breath sounds bilaterally, clear to auscultation and percussion. No rales, rhonchi or wheezes noted. No increased work of breathing, no retractions or nasal flaring. Abdomen/GI: Soft, non-tender, with normal bowel sounds. No distension or tympany. No guarding or rebound. No evidence of tenderness throughout. Skin: Warm, dry with normal turgor. Normal color with no rashes, no lesions, and no evidence of cellulitis. 13:30 Musculoskeletal/extremity: Extremities: noted in the right hip: tenderness, There is no evidence of decreased ROM, deformity, Vital Signs: 12:34 Pulse 60; Resp 17; Temp 97.6; Pulse Ox 99% ; Weight 78.47 kg; Height 4 ft. 11 in. ; ll1 Pain 8/10; 12:37 BP 161 / 92; ll1 14:08 BP 135 / 75; Pulse 51; Pulse Ox 97% on R/A; MAP 94 mmHg; Pain 8/10; tm6 17:23 BP 148 / 81; Pulse 62; Resp 18; Temp 97.6; Pulse Ox 99% on R/A; MAP 98 mmHg; Pain 5/10; tm6 12:34 Body Mass Index 34.94 (78.47 kg, 149.86 cm) ll1 12:34 Pain Scale: Adult ll1 14:08 Pain Scale: Adult tm6 17:23 Pain Scale: Adult tm6 MDM: 12:41 Patient medically screened. ms3 13:30 Differential diagnosis: hip fracture, intertrochanteric fracture, femoral neck ms3 fracture, bursitis, arthritis, strain. 14:38 Data reviewed: vital signs, nurses notes, radiologic studies, plain films, and as a ms3 result, I will discharge patient. I considered the following discharge prescriptions or medication management in the emergency department Medications were administered in the Emergency Department. See MAR. Independent interpretation of the following test(s) in the Emergency Department X-Ray: My interpretation is Right hip x-ray reviewed by me does not reveal fracture. Hardware intact. Care significantly affected by the following chronic conditions: Diabetes, Hypertension. Counseling: I had a detailed discussion with the patient and/or guardian regarding the historical points, exam findings, and any diagnostic results supporting the discharge/admit diagnosis, radiology results, the need for outpatient follow up, to return to the emergency department if symptoms worsen or persist or if there are any questions or concerns that arise at home. Special discussion: I discussed with the patient/guardian in detail that at this point there is no indication for admission to the hospital. It is understood, however, that if the symptoms persist or worsen the patient needs to return immediately for re-evaluation. ED course: Discussed x-ray findings with loosening of hardware with patient. Patient to follow-up with Dr. Richardson in 2 to 3 days. Patient understands and agrees with plan. All questions were answered. Return precautions discussed include worsening symptoms, or any other concerns.. 01/21 12:42 Order name: Hip Right 2 View XRAY; Complete Time: 14:30 ms3 Administered Medications: 13:34 Drug: HYDROcodone-acetaminophen PO 5 mg-325 mg 1 tabs PO once Route: PO; tm6 15:27 Follow up: Response: No adverse reaction; Pain is decreased tm6 Disposition Summary: 01/22/24 14:37 Discharge Ordered Notes: Location: Home ms3 Condition: Stable ms3 Diagnosis - Pain in right hip ms3 - Loosening Orthopedic Hardware ms3 Followup: ms3 - With: Frederic Richardson MD - When: 2 - 3 days - Reason: Recheck today's complaints Discharge Instructions: - Discharge Summary Sheet ms3 - Hip Pain ms3 Forms: - Medication Reconciliation Form ms3 - Antibiotic Education ms3 - Prescription Opioid Use ms3 - Patient Portal Instructions ms3 - Leadership Thank You Letter ms3 Signatures: Dispatcher [employer] Mabel Silva, RN RN ll1 Darrick Lee DO DO ms3 Tom Arriaga RN RN tm6 Corrections: (The following items were deleted from the chart) 12:42 12:42 Hip Right 2 View+RAD.RAD.BRZ ordered. EDMS EDMS
--- NOTE | 2024-01-22 14:38 | ER ---
Nurse's Notes [facility] Name: Amarilys Roberto Age: 73 yrs Sex: Female : 1950 Arrival Date: 01/22/2024 Time: 11:50 Bed 9 Private MD: Diagnosis: Pain in right hip;Loosening Orthopedic Hardware Presentation: 01/21 12:21 Method Of Arrival: EMS: [facility] ss 12:34 Chief complaint: Patient states: R hip pain for months, worse for 3-4 days after ll1 twisting. No falls. Coronavirus screen: Client denies travel out of the [place] in the last 14 days. At this time, the client does not indicate any symptoms associated with coronavirus-19. Ebola Screen: Patient denies travel to an Ebola-affected area in the 21 days before illness onset. Initial Sepsis Screen: Does the patient meet any 2 criteria? No. Patient's initial sepsis screen is negative. Does the patient have a suspected source of infection? No. Patient's initial sepsis screen is negative. Risk Assessment: Do you want to hurt yourself or someone else? Patient reports no desire to harm self or others. Onset of symptoms was January 19, 2024. 12:34 Method Of Arrival: EMS ll1 12:34 Acuity: DUNCAN 4 ll1 Triage Assessment: 12:21 General: Appears distressed, uncomfortable, Behavior is calm, cooperative, appropriate ll1 for age. Pain: Complains of pain in R hip. Musculoskeletal: Reports pain in R hip. Historical: - Allergies: 12:20 ACETAMINOPHEN; ll1 12:20 Percodan; ll1 12:20 Propoxyphene; ll1 12:20 tramadol; ll1 - PMHx: 12:20 Diabetes - NIDDM; diverticulosis; Hypertension; Hypothyroidism; ll1 - PSHx: 12:20 eye sx; ll1 - Immunization history:: Adult Immunizations up to date. - Infectious Disease History:: Denies. - Social history:: Smoking status: Patient denies any tobacco usage or history of. Screenin:45 [facility] ED Fall Risk Assessment (Adult) History of falling in the last 3 months, tm6 including since admission Confusion or Disorientation No (0 pts) Intoxicated or Sedated No (0 pts) Impaired Gait Yes (1 pt) Mobility Assist Device Used Yes (1 pt) Altered Elimination No (0 pt). Abuse screen: Denies threats or abuse. Denies injuries from another. Nutritional screening: No deficits noted. Tuberculosis screening: No symptoms or risk factors identified. 12:47 [facility] ED Fall Risk Assessment (Adult) History of falling in the last 3 months, tm6 including since admission No falls in past 3 months (0 pts) Score/Fall Risk Level 0 - 2 = Low Risk Oriented to surroundings, Maintained a safe environment, Educated pt \T\ family on fall prevention, incl call for assistance when getting out of bed. Assessment: 12:45 General: Appears in no apparent distress. Behavior is calm, cooperative. Pain: tm6 Complains of pain in right hip Pain currently is 8 out of 10 on a pain scale. Quality of pain is described as aching. Neuro: Level of Consciousness is awake, alert, obeys commands, Oriented to person, place, time, situation. Cardiovascular: Patient's skin is warm and dry. Respiratory: Airway is patent Respiratory effort is even, unlabored, Respiratory pattern is regular, symmetrical. GI: No signs and/or symptoms were reported involving the gastrointestinal system. Abdomen is round non-distended. : No signs and/or symptoms were reported regarding the genitourinary system. EENT: No signs and/or symptoms were reported regarding the EENT system. 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 Derm: No signs and/or symptoms reported regarding the dermatologic system. Musculoskeletal: Reports pain in right hip Pain is 8 out of 10 on a pain scale. 14:09 Pain: Complains of pain in left knee. tm6 15:26 Reassessment: Difficulty getting ride for patient. Patient is blind. Working with [address] for ride. 17:23 Reassessment: patient picked up by family. tm6 Vital Signs: 12:34 Pulse 60; Resp 17; Temp 97.6; Pulse Ox 99% ; Weight 78.47 kg; Height 4 ft. 11 in. ; ll1 Pain 8/10; 12:37 BP 161 / 92; ll1 14:08 BP 135 / 75; Pulse 51; Pulse Ox 97% on R/A; MAP 94 mmHg; Pain 8/10; tm6 17:23 BP 148 / 81; Pulse 62; Resp 18; Temp 97.6; Pulse Ox 99% on R/A; MAP 98 mmHg; Pain 5/10; tm6 12:34 Body Mass Index 34.94 (78.47 kg, 149.86 cm) ll1 12:34 Pain Scale: Adult ll1 14:08 Pain Scale: Adult tm6 17:23 Pain Scale: Adult tm6 ED Course: 11:51 Patient arrived in ED. mg5 11:55 Darrick Lee DO is Attending Physician. ms3 12:20 Arm band placed on. ll1 12:26 Patient placed in an exam room, on a stretcher. ll1 12:35 Triage completed. ll1 12:42 Tom Arriaga, SCARLET is Primary Nurse. tm6 12:47 Patient has correct armband on for positive identification. Bed in low position. Call tm6 light in reach. Side rails up X2. Provided Education on: use of call iraheta. Client placed on continuous cardiac and pulse oximetry monitoring. NIBP monitoring applied. Pulse ox on. Door closed. Noise minimized. Warm blanket given. Pillow given. 13:52 Hip Right 2 View XRAY In Process Unspecified. EDMS 14:09 Warm blanket given. Repositioned patient. tm6 14:37 Frederic Irvin MD is Referral Physician. ms3 17:23 No provider procedures requiring assistance completed. Patient did not have IV access tm6 during this emergency room visit. Administered Medications: 13:34 Drug: HYDROcodone-acetaminophen PO 5 mg-325 mg 1 tabs PO once Route: PO; tm6 15:27 Follow up: Response: No adverse reaction; Pain is decreased tm6 Medication: 12:45 VIS not applicable for this client. tm6 Outcome: 14:37 Discharge ordered by . ms3 17:23 Discharged to home with family, tm6 17:23 Condition: stable 17:23 Discharge instructions given to patient, family, Instructed on discharge instructions, follow up and referral plans. Demonstrated understanding of instructions, follow-up care, 17:24 Patient left the ED. tm6 Signatures: Dispatcher [employer] EDYenni Talavera, RN Mabel Escalona RN RN ll1 Darrick Lee DO DO ms3 Chastity Sandhu mg5 Tom Arriaga RN RN tm6
[2024-01-23 05:58] VITALS: TEMP 97.6
[2024-01-23 06:02] VITALS: BP 148/81; O2SAT 99
== END 2024-01-22 17:24 | disposition home or self-care (01) ==
LOC: ER 11:50
DX: T84.030A Mechanical loosening of internal right hip prosthetic joint, initial encounter (principal)
CPT/HCPCS: 99284

== ENCOUNTER 2024-07-15 04:09 | Emergency (ER) | payer OTHER ==
[2024-07-15] MEDS ORDERED: FENTANYL CITR 100 MCG/2 ML ONE ×2 (04:47→07:33)
--- NOTE | 2024-07-15 06:10 | RAD REPORT ---
EXAMINATION: XR WRIST 1-2 VIEWS RIGHT CLINICAL INDICATION: Female, 74 years old. DEFORMITY COMPARISON: No prior exam. VIEWS: As stated above. IMPRESSION: Impacted distal radial fracture with dorsal displacement, mild dorsal tilt, and intra-articular exten erin. Ulnar styloid fracture is also present. No dislocation. Electronically signed by: Ammon Lanza MD 07/15/2024 05:42 AM CDT RP Due to temporary technical issues with the PACS/[employer] reporting system, reports are being ame d by the in-house radiologist without review as a courtesy to ensure prompt reporting the interpreting radiologist is fully responsible for the content of the report. Transcribed Date/Time: 07/15/2024 6:09 AM
--- NOTE | 2024-07-15 08:32 | EDPHYS ---
Physician Documentation [facility] Name: Amarilys Roberto Age: 74 yrs Sex: Female : 1950 Arrival Date: 07/15/2024 Time: 04:09 Bed 5 Private MD: ED Physician Blaise Smith HPI: 07/15 04:25 This 74 yrs old Black Female presents to ER via Unassigned with complaints of Fall sw6 Injury, Wrist Pain. 04:25 Details of fall: The patient fell from an upright position, while walking. Onset: The sw6 symptoms/episode began/occurred just prior to arrival. Associated injuries: The patient sustained Pain to right wrist. Severity of symptoms: At their worst the symptoms were moderate, in the emergency department the symptoms are unchanged. The patient presents from home for evaluation after mechanical trip and fall that occurred just prior to arrival while using her walker. She reports the wheel got stuck on something and it caused her to fall down. She did catch herself with her wrist. She did not hit her head. No loss of consciousness. She did need help getting back up. She does not take any blood thinners. She complains of right wrist pain. She is right-handed. No medications taken prior to arrival. She is blind and uses a walker for ambulation at baseline. She has been able to use her walker since the fall and denies any pain in her hips, knees or ankles. No headache or neck pain. Here for evaluation.. Historical: - Allergies: 04:30 ACETAMINOPHEN; vc1 04:30 Percodan; vc1 04:30 Propoxyphene; vc1 04:30 tramadol; vc1 - PMHx: 04:30 Diabetes - NIDDM; diverticulosis; Hypothyroidism; Hypertension; vc1 - PSHx: 04:30 eye sx; vc1 - Immunization history:: Client reports receiving the 2nd dose of the Covid vaccine. - Infectious Disease History:: Denies. - Social history:: Smoking status: Patient denies any tobacco usage or history of. ROS: 04:25 Constitutional: Negative for fever, chills, and weight loss, Cardiovascular: Negative sw6 for chest pain, palpitations, and edema, Respiratory: Negative for shortness of breath, cough, wheezing, and pleuritic chest pain, Abdomen/GI: Negative for abdominal pain, nausea, vomiting, diarrhea, and constipation, 04:25 MS/extremity: Positive for injury or acute deformity, 04:25 All other systems are negative, Exam: 04:25 Constitutional: This is a well developed, well nourished patient who is awake, alert, sw6 and in no acute distress. Cardiovascular: Regular rate and rhythm with a normal S1 and S2. No gallops, murmurs, or rubs. Normal PMI, no JVD. No pulse deficits. Respiratory: Lungs have equal breath sounds bilaterally, clear to auscultation and percussion. No rales, rhonchi or wheezes noted. No increased work of breathing, no retractions or nasal flaring. Abdomen/GI: Soft, non-tender, with normal bowel sounds. No distension or tympany. No guarding or rebound. No evidence of tenderness throughout. 04:25 Neck: Trachea midline, no thyromegaly or masses palpated, and no cervical lymphadenopathy. Supple, full range of motion without nuchal rigidity, or vertebral point tenderness. No Meningismus. Skin: Warm, dry with normal turgor. Normal color with no rashes, no lesions, and no evidence of cellulitis. Psych: Awake, alert, with orientation to person, place and time. Behavior, mood, and affect are within normal limits. 04:25 Musculoskeletal/extremity: Swelling and tenderness to the radial aspect of her right wrist with decreased range of motion due to pain. +2 radial pulse right side.. Vital Signs: 04:28 BP 159 / 83; Pulse 53; Resp 16; Temp 98.1; Pulse Ox 99% ; Weight 65.77 kg; Height 4 ft. vc1 11 in. ; Pain 10/10; 05:00 BP 152 / 84; Pulse 55; Resp 16; Pulse Ox 99% ; al5 05:30 BP 139 / 79; Pulse 52; Resp 18; Pulse Ox 100% ; al5 06:00 BP 142 / 76; Pulse 54; Resp 16; Pulse Ox 100% ; al5 08:59 BP 138 / 72; Pulse 58; Resp 17; Pulse Ox 100% ; ll1 04:28 Body Mass Index 29.29 (65.77 kg, 149.86 cm) vc1 04:28 Pain Scale: Adult vc1 Procedures: 08:16 Splinting: Splint applied to right wrist using Orthoglass splint, applied by myself. rn post reduction film - reveals improved alignment, Examined by me, post splint application: neurovascular intact, 2+ distal pulses palpable, brisk capillary refill noted, Patient tolerated well. Reduction: of the right wrist, using traction, manipulation, finger traps utilized, Immobilized with Patient tolerated well. Post reduction film -. MDM: 04:21 Medical Screening Exam initiated [facility] 04:25 Differential diagnosis: abrasion, fracture, sprain, strain. Data reviewed: vital signs, [facility] nurses notes. 05:23 Data reviewed: radiologic studies, plain films. ED course: The patient is doing well sw here in the ER. The x-ray of her right wrist shows an ulnar styloid fracture as well as a distal radius fracture. She will need reduction as well as a splint placed. Plan for moderate sedation for the above-mentioned reduction.. 06:55 Transition of care: After a detail discussion of the patient's case, care is [facility] transferred to Blaise Smith MD. 08:29 Counseling: I had a detailed discussion with the patient and/or guardian regarding the rn historical points, exam findings, and any diagnostic results supporting the discharge/admit diagnosis, radiology results, the need for outpatient follow up, to return to the emergency department if symptoms worsen or persist or if there are any questions or concerns that arise at home. Response to treatment: the patient's symptoms have mildly improved after treatment, and as a result, I will discharge patient. Special discussion: I discussed with the patient/guardian in detail that at this point there is no indication for admission to the hospital. It is understood, however, that if the symptoms persist or worsen the patient needs to return immediately for re-evaluation. Based on the history and exam findings, there is no indication for further emergent testing or inpatient evaluation. I discussed with the patient/guardian the need to see the orthopedic surgeon for further evaluation of the symptoms. ED course: Patient with comminuted and mildly displaced distal radius fracture, status post reduction and splinting. Patient improved. Understands need to follow-up with orthopedics as likely will need surgery. Will discharge home with return precautions.. 07/15 04:25 Order name: Wrist Right 2 View XRAY; Complete Time: 07:57 [facility] 07/15 08:16 Order name: XRAY Wrist RIGHT 2 view; Complete Time: 08:55 rn 07/15 05:23 Order name: IV Saline Lock; Complete Time: 06:38 [facility] 07/15 05:23 Order name: Monitor; Complete Time: 06:18 [facility] 07/15 07:15 Order name: Misc. Order: place in finger traps to gravity; Complete Time: 07:34 rn Administered Medications: 04:55 Drug: fentaNYL (PF) IM 50 mcg IM once Route: IM; Site: right gluteus; al5 07:34 Follow up: Response: No adverse reaction; Pain is decreased ll1 07:57 Drug: fentaNYL (PF) IVP 25 mcg IVP once {Note: pain 10/10 RASS 0.} Route: IVP; Site: ll1 left antecubital; 09:21 Follow up: Response: No adverse reaction; Pain is decreased; RASS: Alert and Calm (0) ll1 Disposition Summary: 07/15/24 08:31 Discharge Ordered Notes: Location: Home rn Problem: new rn Symptoms: have improved rn Condition: Stable rn Diagnosis - Displaced comminuted fracture of shaft of radius, right arm, initial encounter for rn closed fracture - Nondisplaced fracture of right ulna styloid process, initial encounter for closed rn fracture Followup: rn - With: Ulices Castro MD - When: 5 - 6 days - Reason: Recheck today's complaints, Re-evaluation by your physician Discharge Instructions: - Discharge Summary Sheet rn - Cast or Splint Care, Adult rn - Radial Fracture rn - Ulnar Fracture rn - Closed Reduction for Wrist or Forearm, Care After rn Forms: - Medication Reconciliation Form rn - Antibiotic rn orthopaedics - Prescription Opioid Use rn - Patient Portal Instructions rn - Leadership Thank You Letter rn Prescriptions: - Tylenol #3 - take 1 tablet ORAL route every 8-10 hours As needed; 12 tablet; Refills: 0, rn Product Selection Permitted Signatures: Dispatcher [employer] EDMS Blaise Smith MD MD rn Lewis, Lynsay RN RN ll1 Deana Rasheed RN RN vc1 Nguyen Steen MD MD sw6 Luci Aly RN RN al5 Corrections: (The following items were deleted from the chart) 04:26 04:26 Wrist Right 2 View+RAD.RAD.BRZ ordered. EDMS EDMS 08:17 08:17 Wrist Right 2 View+RAD.RAD.BRZ ordered. EDMS EDMS
--- NOTE | 2024-07-15 08:32 | ER ---
Nurse's Notes [facility] Name: Amarilys Roberto Age: 74 yrs Sex: Female : 1950 Arrival Date: 07/15/2024 Time: 04:09 Bed 5 Private MD: Diagnosis: Displaced comminuted fracture of shaft of radius, right arm, initial encounter for closed fracture;Nondisplaced fracture of right ulna styloid process, initial encounter for closed fracture Presentation: 07/15 04:28 Chief complaint: Patient states: tripped over walker wheel and caught self with right vc1 wrist. Coronavirus screen: Client denies travel out of the [place] in the last 14 days. At this time, the client does not indicate any symptoms associated with coronavirus-19. Ebola Screen: Patient negative for fever greater than or equal to 101.5 degrees Fahrenheit, and additional compatible Ebola Virus Disease symptoms Patient denies exposure to infectious person. Patient denies travel to an Ebola-affected area in the 21 days before illness onset. No symptoms or risks identified at this time. Initial Sepsis Screen: Does the patient meet any 2 criteria? No. Patient's initial sepsis screen is negative. Does the patient have a suspected source of infection? No. Patient's initial sepsis screen is negative. Risk Assessment: Do you want to hurt yourself or someone else? Patient reports no desire to harm self or others. Onset of symptoms was July 15, 2024 at 04:00. 04:28 Method Of Arrival: Wheelchair vc1 04:28 Acuity: DUNCAN 2 vc1 Triage Assessment: 04:32 General: Appears in no apparent distress. uncomfortable, Behavior is calm, cooperative, vc1 appropriate for age. Pain: Complains of pain in right wrist Pain does not radiate. Pain currently is 10 out of 10 on a pain scale. EENT: No deficits noted. No signs and/or symptoms were reported regarding the EENT system. Neuro: Level of Consciousness is awake, alert, obeys commands, Oriented to person, place, time, situation, Appropriate for age. Cardiovascular: Capillary refill < 3 seconds Patient's skin is warm and dry. Respiratory: Airway is patent Respiratory effort is even, unlabored, Respiratory pattern is regular, symmetrical. GI: No deficits noted. No signs and/or symptoms were reported involving the gastrointestinal system. : No deficits noted. No signs and/or symptoms were reported regarding the genitourinary system. Derm: Skin is intact, Skin is dry, Skin is normal. Musculoskeletal: Bony deformity noted of right wrist. Historical: - Allergies: 04:30 ACETAMINOPHEN; vc1 04:30 Percodan; vc1 04:30 Propoxyphene; vc1 04:30 tramadol; vc1 - PMHx: 04:30 Diabetes - NIDDM; diverticulosis; Hypothyroidism; Hypertension; vc1 - PSHx: 04:30 eye sx; vc1 - Immunization history:: Client reports receiving the 2nd dose of the Covid vaccine. - Infectious Disease History:: Denies. - Social history:: Smoking status: Patient denies any tobacco usage or history of. Screenin:32 [facility] ED Fall Risk Assessment (Adult) History of falling in the last 3 months, vc1 including since admission Yes- single mechanical fall (1 pt) Confusion or Disorientation No (0 pts) Intoxicated or Sedated No (0 pts) Impaired Gait Yes (1 pt) Mobility Assist Device Used Yes (1 pt) Altered Elimination No (0 pt) Score/Fall Risk Level 3 or more points = High Risk Oriented to surroundings, Maintained a safe environment, Educated pt \T\ family on fall prevention, incl call for assistance when getting out of bed, Assessed \T\ reinforced patient's understanding of fall precautions, Hourly rounding (assess needs \T\ fall precautionary measures) done, Offered frequent toileting (1:1 observation), Remained with patient while ambulating, Utilized family, sitter, or virtual adjunct instructor chemistry as indicated. Abuse screen: Denies threats or abuse. Nutritional screening: No deficits noted. Tuberculosis screening: No symptoms or risk factors identified. Assessment: 04:55 Pain: Complains of pain in right wrist. Neuro: Level of Consciousness is awake, alert, al5 obeys commands, Oriented to person, place, time, situation. Cardiovascular: Capillary refill < 3 seconds Patient's skin is warm and dry. Respiratory: Airway is patent Respiratory effort is even, unlabored, Respiratory pattern is regular, symmetrical. GI: No signs and/or symptoms were reported involving the gastrointestinal system. : No signs and/or symptoms were reported regarding the genitourinary system. EENT: No signs and/or symptoms were reported regarding the EENT system. Derm: Skin is intact, Skin is pink, warm \T\ dry. normal. Musculoskeletal: Bony deformity noted of right wrist Reports pain in right wrist. 06:30 Reassessment: Patient appears in no apparent distress at this time. No changes from al5 previously documented assessment. Patient and/or family updated on plan of care and expected duration. Pain level reassessed. Patient is alert, oriented x 3, equal unlabored respirations, skin warm/dry/pink. 09:00 Reassessment: No changes from previously documented assessment. Patient and/or family ll1 updated on plan of care and expected duration. Pain level reassessed. Patient is alert, oriented x 3, equal unlabored respirations, skin warm/dry/pink. 09:20 Reassessment: No changes from previously documented assessment. Patient and/or family ll1 updated on plan of care and expected duration. Pain level reassessed. Patient is alert, oriented x 3, equal unlabored respirations, skin warm/dry/pink. 09:20 Musculoskeletal: Circulation, motion, and sensation intact. Capillary refill < 3 ll1 seconds, in right fingers. Vital Signs: 04:28 BP 159 / 83; Pulse 53; Resp 16; Temp 98.1; Pulse Ox 99% ; Weight 65.77 kg; Height 4 ft. vc1 11 in. ; Pain 10/10; 05:00 BP 152 / 84; Pulse 55; Resp 16; Pulse Ox 99% ; al5 05:30 BP 139 / 79; Pulse 52; Resp 18; Pulse Ox 100% ; al5 06:00 BP 142 / 76; Pulse 54; Resp 16; Pulse Ox 100% ; al5 08:59 BP 138 / 72; Pulse 58; Resp 17; Pulse Ox 100% ; ll1 04:28 Body Mass Index 29.29 (65.77 kg, 149.86 cm) vc1 04:28 Pain Scale: Adult vc1 ED Course: 04:15 Patient arrived in ED. gm2 04:21 Nguyen Steen MD is Attending Physician. sw6 04:30 Triage completed. vc1 04:32 Arm band placed on left wrist. vc1 04:34 Patient has correct armband on for positive identification. Bed in low position. Call vc1 light in reach. Pulse ox on. NIBP on. 04:55 Luci Aly RN is Primary Nurse. al5 04:56 Provided Education on: medication. al5 05:07 Wrist Right 2 View XRAY In Process Unspecified. EDMS 06:38 Inserted saline lock: 20 gauge in left antecubital area, using aseptic technique. al5 Flushed with 10 mL NS. 07:13 Attending Physician role handed off by Nguyen Steen MD rn 07:13 Blaise Smith MD is Attending Physician. rn 07:35 Primary Nurse role handed off by Luci Aly RN ll1 07:35 Mabel Jeffries RN is Primary Nurse. ll1 08:30 Ulices Castro MD is Referral Physician. rn 08:38 XRAY Wrist RIGHT 2 view In Process Unspecified. EDMS 09:20 Sling applied to right arm. ll1 09:20 No provider procedures requiring assistance completed. IV discontinued, intact, ll1 bleeding controlled, No redness/swelling at site. Pressure dressing applied. Administered Medications: 04:55 Drug: fentaNYL (PF) IM 50 mcg IM once Route: IM; Site: right gluteus; al5 07:34 Follow up: Response: No adverse reaction; Pain is decreased ll1 07:57 Drug: fentaNYL (PF) IVP 25 mcg IVP once {Note: pain 10/10 RASS 0.} Route: IVP; Site: ll1 left antecubital; 09:21 Follow up: Response: No adverse reaction; Pain is decreased; RASS: Alert and Calm (0) ll1 Medication: 04:34 VIS not applicable for this client. vc1 Outcome: 08:31 Discharge ordered by . rn 09:21 Discharged to home via wheelchair, 1 09:21 Condition: stable 09:21 Discharge instructions given to patient, Instructed on discharge instructions, follow up and referral plans. no drinking with medication, no driving heavy equipment, medication usage, Demonstrated understanding of instructions, follow-up care, medications, splint care, Prescriptions given X 1, 09:21 Patient left the ED. ll1 Signatures: Dispatcher [employer] EDMS Blaise Smith MD MD rn Lewis, Lynsay, RN RN ll1 Deana Rasheed RN RN vc1 [facility] Nguyen Steen MD MD sw Luci Aly RN RN al5
--- NOTE | 2024-07-15 08:44 | RAD REPORT ---
EXAMINATION: XR RIGHT WRIST CLINICAL INDICATION: post reduction and splinting RIGHT TECHNIQUE: Multiple projections of the right wrist were obtained. COMPARISON: No prior exam. FINDINGS: Previously noted distal radius and ulnar fracture have been partially reduced and placed wi thin a splint. Bone detail somewhat limited. Moderate osteopenia.
[2024-07-15 09:30] VITALS: TEMP 98.1
[2024-07-15 09:41] VITALS: O2SAT 100
[2024-07-15 09:49] VITALS: BP 138/72
== END 2024-07-15 09:21 | disposition home or self-care (01) ==
LOC: ER 04:09
DX: S52.351A Displaced comminuted fracture of shaft of radius, right arm, initial encounter for closed fracture (principal); S52.614A Nondisplaced fracture of right ulna styloid process, initial encounter for closed fracture; W01.0XXA Fall on same level from slipping, tripping and stumbling without subsequent striking against object, initial encounter
CPT/HCPCS: 73100 ×2; 96372; 96374; 99284; 25605; J3010 ×2

== ENCOUNTER 2024-07-27 07:28 | Day surgery (SDC) | payer OTHER ==
[2024-07-20 08:27] LABS: Absolute Basophils 0.1 K/uL (0-0.5); Absolute Eosinophils 0.3 K/uL (0-0.5); Absolute Monocytes 0.7 K/uL (0.1-1.3); Absolute Neutrophil 4.2 K/uL (1.8-8.0); Basophils % 1.3 % (0-1.3); Eosinophils % 4.2 % (0-4.4); Hematocrit 37.3 % (36.0-45.0); Hemoglobin 12.4 g/dL (12.0-15.0); Lymphocytes % 27.4 % (15.3-44.8); MCHC 33.3 g/dL (32.0-36.0); MPV 9.2 fL (7.6-11.3); Neutrophils % 57.1 % (41.7-73.7); Nucleated Red Blood Cells % 0.1 % (0-0); Platelets 312 thou/uL (152-406); RBC Red Blood Cell Count 4.29 M/uL (3.86-4.86); Red Cell Distribution Width 14.4 % (12.1-15.2)
[2024-07-20 08:38] LABS: Anion Gap 9.3 mEq/L (5.0-15.0); Potassium 3.3 mEq/L (3.5-5.1)
--- NOTE | 2024-07-20 12:15 | EKG ---
Test Date: 2024-07-20 Test Time: 08:13:18 Clarity Developer: SIERRA MEASUREMENT RESULTS: Intervals: Rate: 48 OK: 184 QRSD: 88 QT: 462 QTc: 412 [place]: P: 86 OK: 184 QRS: 0 T: 79 INTERPRETIVE STATEMENTS: Marked sinus bradycardia Abnormal ECG Compared to ECG 10/21/2016 14:29:16 No significant changes Electronically Signed On 07-20-24 12:14:46 CDT by Steven George
[2024-07-27] MEDS ORDERED: BUPIVACAINE 0.5% PF 10 ML VIAL ONE (07:35)
[2024-07-27] MEDS ORDERED: LIDOCAINE 1% MPF 5 ML VIAL ONE (07:35)
[2024-07-27] MEDS ORDERED: EPINEPHRINE 1 MG/ML VIAL ONE (07:36)
[2024-07-27] MEDS ORDERED: MIDAZOLAM HCL 2 MG/2 ML INJ ONE (07:36)
[2024-07-27] MEDS ORDERED: dexAMETHasone 10 MG/ML VIAL ONE (07:36)
[2024-07-27] MEDS ORDERED: FENTANYL CITR 100 MCG/2 ML ONE (07:36)
[2024-07-27] MEDS: NA CHLORIDE 0.9% 1,000 ML ONE (08:15)
[2024-07-27] MEDS ORDERED: ONDANSETRON 4 MG/2 ML VIAL ONE (09:10)
[2024-07-27] MEDS ORDERED: propofoL 200 MG/20 ML VIAL IV ONE (09:10)
[2024-07-27] MEDS ORDERED: LIDOCAINE 2% MPF 5 ML VIAL ONE (09:10)
[2024-07-27] MEDS ORDERED: KETOROLAC 30 MG/ML INJ ONE (09:10)
[2024-07-27] MEDS: CEFAZOLIN SODIUM 1 GM/VIAL ONE (09:40)
[2024-07-27] MEDS ORDERED: Phenylephrine HCl 10 MG/ML 1 ML VIAL ONE (10:14)
[2024-07-27] MEDS ORDERED: NS 0.9% VIAL 10 ML ONE (10:14)
[2024-07-27] MEDS ORDERED: DIPHENHYDRAMINE 50 MG/ML VIAL ONE (10:34)
[2024-07-27] MEDS ORDERED: NA CHLORIDE 0.9% 1,000 ML ONE (11:08)
--- NOTE | 2024-07-27 12:25 | RAD REPORT ---
EXAM: Fluoroscopy use, Wrist Right 2 View HISTORY: [facility] MA[facility] RT WRIST ORIF 3 PART COMPARISON: None FINDINGS: Multiple images were sent to PACS, during a fluoroscopically guided RT WRIST ORIF 3 PART. No radiologist was involved in protocoling or performance of the study, and no radiologist was present for the duration of the procedure. No interpretation of the saved images will be provided. Total fluoroscopy time: 0.8 minutes. IMPRESSION: Documentation of fluoroscopy use as above.
[2024-07-27 15:06] VITALS: O2SAT 99
[2024-07-27 15:07] VITALS: BP 168/86; TEMP 97
--- NOTE | 2024-07-27 20:43 | OP ---
Date of Procedure: 07/27/2024 Surgeon: Ulices Castro MD Preoperative Diagnosis: Right comminuted displaced intra-articular distal radius fracture with fract ure of the distal aspect of the ulna. Postoperative Diagnosis: Right comminuted displaced intra-articular distal radius fracture with frac ture of the distal aspect of the ulna. Procedure: Open reduction and internal fixation of distal radius fracture including 3 intra-articula r components using the Acumed 2 volar radius plating set. Estimated Blood Loss: Less than 10 cc. Complications: There were no complications. Indications For Operation: Ms. Roberto is a 74-year-old female who unfortunately is visually impaired who fell injuring her right upper extremity. She was seen and examined in the emergency department where she was ruled out for other injuries; however, she had a very displaced and comminuted right di stal radius fracture. There is a small ulnar component including the base of the styloid as well. R isks, benefits, and alternatives of different methods of treating this have been discussed with the p atient. She is 74 and has limited demands. However, the fracture itself was very comminuted, very d isplaced and patient elects for operative intervention to provide as much function as possible. Cons ented for the possibility of external fixation or open reduction and internal fixation or other indic ated procedures. She states she understands things as presented and wishes to proceed. Description Of Procedure: The patient was taken to the operating room, placed in the supine position . General anesthesia was easily obtained by staff. Following this, a well-padded tourniquet was beba charbel on superior right arm. Right upper extremity was then prepped and draped in usual sterile fashio n for the procedure. Following this, the C-arm was brought in and closed reduction techniques were u sed and it appeared that we could control the fragments with standard reduction techniques and it cedric eared the fragments were large enough that I believe that the plate is applicable and a standard vola r approach of Twin was then taken down carefully through skin only. Meticulous hemostasis being laurent ntained using Bovie electrocautery. The flexor carpi radialis was reflected radialward to protect th e radial artery. This was followed by using the sheath for further dissection. Care being taken to protect the FPL tendon as well as muscle belly. The pronator quadratus was encountered; however, the re was some scarring here and directly overlies a very comminuted portion of the radius. Combination of closed reduction techniques and Morven elevator used to present the distal portion of the radius. It did not appear that we could reduce the radius and hold it for placement of the plate in standard fashion. Therefore, decision was made to move forward with placing the plate on the distal portion of the radius. This was done using biplanar C-arm radiography with the pegs and screws holding the i ntra-articular fragments. After this, it was then reduced to the radial shaft and radial shaft screw s were placed. This appeared to reproduce the anatomy quite well and appeared we have captured all t he fragments. The remainder of the screws and 1 additional peg were placed. X-rays looked greatly i mproved. The wound was irrigated and closed using nylon sutures. The patient was placed in a very w ell-padded sterile dressing as well as splint, awakened, taken to recovery room in good condition. N o complications. SE/MODL Voice ID: [id number] Report ID: [id number]
== END 2024-07-27 13:15 | disposition home or self-care (01) ==
LOC: OR 07:28
PROVIDERS: ATTEND Orthopaedic Surgery
PROC: 0PSK04Z Reposition Right Ulna with Internal Fixation Device, Open Approach (ICD-10-PCS; 2024-07-27)
PROC: 0PSH04Z Reposition Right Radius with Internal Fixation Device, Open Approach (ICD-10-PCS; principal; 2024-07-27 09:45)
DX: S52.571A Other intraarticular fracture of lower end of right radius, initial encounter for closed fracture (principal); S52.601A Unspecified fracture of lower end of right ulna, initial encounter for closed fracture; S52.511A Displaced fracture of right radial styloid process, initial encounter for closed fracture
CPT/HCPCS: 93005; 85025; 80048; 36415; 82947 ×2; 73100; 25609; 25652; C1713 ×2; A4216; J2704; J1200; J2003 ×2; J2371; J2250; J3010; J1100; J0171; J2405; J7030 ×2; J0690